=== PATIENT | male | born 1940 | race Caucasian/White ===

== ENCOUNTER → 2018-03-25 | Outpatient (CLI) | payer MEDICARE, OTHER ==
[~2018-03-25] MED LIST: CARVEDILOL12.5 MG PO; CARVEDILOL25 MG PO; CHERATUSSIN AC S5 ML PO; CINNAMON500 MG PO; COQ1050 MG PO; COZAAR 50 MG TA50 M2 PO; COZAAR100 MG PO; CRESTOR10 MG PO; CRESTOR20 MG PO; ENTRESTO 49 MG1 EACH PO; FISH OIL 1,4001 EACH; FISH OIL 1,4001 EACH PO; FISH OIL PO; FUROSEMIDE 20 M20 M1 PO; GLUCOPHAGE1000 MG PO; GLUCOTROL10 MG PO; GLUCOTROL5 MG PO; JANUVIA 50 MG T50 M1 PO; LANOXIN 0.120.125 M1 PO; LASIX 40 MG TAB40 M2 PO; LEVAQUIN 750 M750 MG PO; LEVOTHYROXINE0.05 MG PO; MAGNESIUM OXID400 MG PO; NITROGLYCERIN0.4 MG PO; NOVOLOG100 UNIT/1 SUBQ; PREDNISONE 10 M10 M1 PO; PREDNISONE50 MG PO; PROAIR HFA8.5 GM INH; SPIRONOLACTONE25 M1 PO; SYNTHROID125 MC1 PO; TRICOR145 MG PO; VITAMIN D1000 UNI1 PO; VITAMIN D35000 UNI1 PO; ZPAK PO
[2018-03-25 10:17] LABS: ALBUMIN 3.8 g/dL (3.4-5.0); ALKALINE PHOSPHATASE 26 U/L (46-116); CHOLESTEROL 302 mg/dL (<200); DIRECT BILIRUBIN 0.1 mg/dL (<0.1-0.3); HDL CHOLESTEROL 36 mg/dL (>40); SGOT 40 U/L (15-37); SGPT 44 U/L (30-65); TC:HDL 8.4 Ratio (Not establshd); TOTAL BILIRUBIN 0.4 mg/dL (<0.1-1.0); TOTAL PROTEIN 7.7 g/dL (6.4-8.2); TRIGLYCERIDE 428 mg/dL (<150); VLDL 86 mg/dL (<40)
[2018-03-25 10:33] LABS: LDL CHOLESTEROL ND mg/dL (<100); SERUM ASSESSMENT Clear
== END ==
LOC: M.LAB 09:30
PROVIDERS: Nurse Practitioner Family
DX: E78.2 Mixed hyperlipidemia (principal)

== ENCOUNTER 2018-05-12 13:43 | Emergency (ER) | payer MEDICARE, OTHER ==
[~2018-05-12] VITALS: Ht 177.8 cm; Wt 111.1 kg
[~2018-05-12 13:43] MED LIST changes: -ENTRESTO 49 MG1 EACH PO; -NOVOLOG100 UNIT/1 SUBQ; -PREDNISONE50 MG PO; -SYNTHROID125 MC1 PO
[2018-05-12] MEDS ORDERED: SYNTHROID125 MC1 PO (13:59)
[2018-05-12] MEDS ORDERED: NOVOLOG100 UNIT/1 SUBQ (14:01)
[2018-05-12] MEDS ORDERED: ENTRESTO 49 MG1 EACH PO (14:01)
[2018-05-12 14:16] LABS: ABSOLUTE EOSINOPHILS 0.2 thou/uL (0.0-0.7); ABSOLUTE LYMPHOCYTES 2.2 thou/uL (0.8-5.3); ABSOLUTE MONOCYTES 0.8 thou/uL (0.0-1.2); ABSOLUTE NEUTROPHILS 4.4 thou/uL (1.6-8.1); BASOPHILS 0.6 %; EOSINOPHILS 2.8 %; HEMATOCRIT 36.8 % (42.0-52.0); HEMOGLOBIN 12.3 gm/dL (14.0-18.0); LYMPHOCYTES 28.7 %; MCH 29.8 pg (26.0-34.0); MCHC 33.4 g/dL (28.0-37.0); MCV 89.3 fL (80.0-100.0); MONOCYTES 10.7 %; MPV 8.3 fl. (7.2-11.1); NUCLEATED RBCS 0 /100WBC; PLATELET COUNT* 206 thou/uL (150-400); POLYS 57.2 %; RBC 4.12 mil/uL (4.50-6.00); RDW-CV 13.4 % (10.5-14.5); WBC 7.7 thou/uL (4.0-11.0)
[2018-05-12 14:25] LABS: APTT 24.7 Seconds (25.0-31.3); PROTIME 10.3 Seconds (9.20-11.50)
[2018-05-12 14:26] LABS: ANION GAP 4 mmol/L (7-16); BUN 31 mg/dL (7-18); CALCIUM 9.5 mg/dL (8.5-10.1); CHLORIDE 97 mmol/L (98-107); CO2 34 mmol/L (21-32); CREATININE 1.8 mg/dL (0.6-1.3); GLUCOSE 268 mg/dL (70-99); POTASSIUM 4.5 mmol/L (3.5-5.1); SODIUM 135 mmol/L (136-145)
[2018-05-12 14:36] LABS: ALBUMIN 3.6 g/dL (3.4-5.0); ALKALINE PHOSPHATASE 28 U/L (46-116); LIPASE 171 U/L (73-393); MAGNESIUM 1.7 mg/dL (1.8-2.4); NT-PRO BRAIN NAT PEPTIDE 68 pg/mL (<300); SGOT 40 U/L (15-37); SGPT 48 U/L (30-65); TOTAL BILIRUBIN 0.4 mg/dL (<0.1-1.0); TOTAL PROTEIN 7.8 g/dL (6.4-8.2); TROPONIN-I LEVEL <0.06 ng/mL (<0.06)
[2018-05-12] MEDS ORDERED: ZPAK PO (16:15)
[2018-05-12] MEDS ORDERED: PREDNISONE50 MG PO (16:15)
[2018-05-12 16:45] VITALS: BP 108/46
--- NOTE | 2018-05-13 14:09 | EKG ---
[place] [address] ELECTROCARDIOGRAM REPORT Name: ADY CHOE Room: [facility]#: [id number] Admission: 05/12/18 Attend Phys: Discharge: 05/12/18 Date of : 40 Report #: [id number] THIS REPORT FOR: //name// 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 05/13/18 1409 1410 09 Charlie England MD, [facility] /EPI
--- NOTE | 2018-05-13 14:14 | EKG ---
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 PERALES : 1940 Requested By: Levar Napoles Order Number: [id number] MD: Charlie England Measurements Intervals [place] Rate: 75 P: 54 RI: 145 QRS: 136 QRSD: 167 T: 61 QT: 439 QTc: 491 Interpretive Statements Atrial-sensed ventricular-paced rhythm No further analysis attempted due to paced rhythm Baseline wander in lead(s) V5 Electronically Signed On 05-13-2018 14:14:02 CDT by Charlie England [email or web address] <ELECTRONICALLY SIGNED> By: Charlie England MD, [facility] 05/13/18 1414 D: 09/1622 22 Charlie England MD, FACC /EPI
== END 2018-05-12 16:46 | disposition home or self-care (01) ==
LOC: M.ERS 13:43
PROVIDERS: Emergency Medicine Emergency Medical Services
DX: J44.1 Chronic obstructive pulmonary disease with (acute) exacerbation (principal); E78.5 Hyperlipidemia, unspecified; I11.0 Hypertensive heart disease with heart failure; I50.9 Heart failure, unspecified; E11.9 Type 2 diabetes mellitus without complications; Z87.891 Personal history of nicotine dependence; Z88.8 Allergy status to other drugs, medicaments and biological substances; Z90.49 Acquired absence of other specified parts of digestive tract

== ENCOUNTER → 2018-07-23 | Outpatient (CLI) | payer MEDICARE, OTHER ==
[~2018-07-23] MED LIST changes: +ENTRESTO 49 MG1 EACH PO; +NOVOLOG100 UNIT/1 SUBQ; +PREDNISONE50 MG PO; +SYNTHROID125 MC1 PO
[2018-07-23 10:26] LABS: URINE BILIRUBIN NEGATIVE (Negative); URINE BLOOD NEGATIVE (Negative); URINE CLARITY CLEAR; URINE COLOR YELLOW; URINE GLUCOSE-RANDOM 1+ (Negative); URINE KETONES NEGATIVE (Negative); URINE LEUKOCYTES NEGATIVE (Negative); URINE NITRITE NEGATIVE (Negative); URINE PROTEIN TRACE (Negative); URINE SPECIFIC GRAVITY 1.025 (1.005-1.030); URINE UROBILINOGEN 0.2 E.U./dl (0.2-1.0)
[2018-07-23 10:26] LABS: ABSOLUTE EOSINOPHILS 0.3 thou/uL (0.0-0.7); ABSOLUTE LYMPHOCYTES 1.8 thou/uL (0.8-5.3); ABSOLUTE MONOCYTES 0.5 thou/uL (0.0-1.2); ABSOLUTE NEUTROPHILS 3.3 thou/uL (1.6-8.1); BASOPHILS 0.8 %; EOSINOPHILS 4.8 %; HEMOGLOBIN 12.7 gm/dL (14.0-18.0); LYMPHOCYTES 30.3 %; MCH 30.5 pg (26.0-34.0); MCHC 33.5 g/dL (28.0-37.0); MCV 91.2 fL (80.0-100.0); MONOCYTES 7.9 %; MPV 8.5 fl. (7.2-11.1); NUCLEATED RBCS 0 /100WBC; PLATELET COUNT* 204 thou/uL (150-400); POLYS 56.2 %; RBC 4.17 mil/uL (4.50-6.00); RDW-CV 14.4 % (10.5-14.5); WBC 5.8 thou/uL (4.0-11.0)
[2018-07-23 10:39] LABS: ALBUMIN 3.6 g/dL (3.4-5.0); ALKALINE PHOSPHATASE 27 U/L (46-116); ANION GAP 3 mmol/L (7-16); BUN 26 mg/dL (7-18); CALCIUM 9.8 mg/dL (8.5-10.1); CHLORIDE 100 mmol/L (98-107); CHOLESTEROL 280 mg/dL (<200); CO2 34 mmol/L (21-32); CREATININE 1.6 mg/dL (0.6-1.3); GLUCOSE 259 mg/dL (70-99); HDL CHOLESTEROL 36 mg/dL (>40); POTASSIUM 4.3 mmol/L (3.5-5.1); SGOT 34 U/L (15-37); SGPT 50 U/L (30-65); SODIUM 137 mmol/L (136-145); TC:HDL 7.8 Ratio (Not establshd); TOTAL BILIRUBIN 0.4 mg/dL (<0.1-1.0); TOTAL PROTEIN 7.4 g/dL (6.4-8.2); TRIGLYCERIDE 422 mg/dL (<150); VLDL 84 mg/dL (<40)
[2018-07-23 10:42] LABS: LDL CHOLESTEROL ND mg/dL (<100)
[2018-07-23 10:44] LABS: SERUM ASSESSMENT Clear
[2018-07-23 19:07] LABS: GLYCOHEMOGLOBIN (HGB A1C) 10.4 % (4.8-5.6)
== END ==
LOC: M.LAB 10:02
PROVIDERS: Family Medicine
DX: E11.9 Type 2 diabetes mellitus without complications (principal); E03.9 Hypothyroidism, unspecified; I11.0 Hypertensive heart disease with heart failure; I50.9 Heart failure, unspecified; E78.5 Hyperlipidemia, unspecified; Z87.891 Personal history of nicotine dependence; Z79.4 Long term (current) use of insulin

== ENCOUNTER → 2018-12-17 | Outpatient (CLI) | payer MEDICARE, OTHER ==
[2018-12-17 09:41] LABS: ALBUMIN 3.7 g/dL (3.4-5.0); ALKALINE PHOSPHATASE 27 U/L (46-116); CHOLESTEROL 277 mg/dL (<200); DIRECT BILIRUBIN 0.1 mg/dL (<0.1-0.3); HDL CHOLESTEROL 36 mg/dL (>40); LDL CHOLESTEROL 164 mg/dL (<100); SGOT 33 U/L (15-37); SGPT 40 U/L (30-65); TC:HDL 7.7 Ratio (Not establshd); TOTAL BILIRUBIN 0.3 mg/dL (<0.1-1.0); TOTAL PROTEIN 7.3 g/dL (6.4-8.2); TRIGLYCERIDE 389 mg/dL (<150); VLDL 78 mg/dL (<40)
[2018-12-17 09:42] LABS: SERUM ASSESSMENT Clear
== END ==
LOC: M.LAB 08:48
PROVIDERS: Nurse Practitioner
DX: E78.2 Mixed hyperlipidemia (principal)

== ENCOUNTER → 2019-04-01 | Outpatient (CLI) | payer MEDICARE, OTHER ==
[2019-04-01 09:49] LABS: ABSOLUTE EOSINOPHILS 0.2 thou/uL (0.0-0.7); ABSOLUTE LYMPHOCYTES 2.6 thou/uL (0.8-5.3); ABSOLUTE MONOCYTES 0.7 thou/uL (0.0-1.2); ABSOLUTE NEUTROPHILS 6.2 thou/uL (1.6-8.1); BASOPHILS 0.3 %; EOSINOPHILS 1.7 %; HEMATOCRIT 38.3 % (42.0-52.0); HEMOGLOBIN 12.6 gm/dL (14.0-18.0); MCH 29.8 pg (26.0-34.0); MCV 90.3 fL (80.0-100.0); MPV 8.1 fl. (7.2-11.1); NUCLEATED RBCS 0 /100WBC; PLATELET COUNT* 202 thou/uL (150-400); RBC 4.24 mil/uL (4.50-6.00); RDW-CV 13.5 % (10.5-14.5); WBC 9.7 thou/uL (4.0-11.0)
[2019-04-01 09:57] LABS: ALBUMIN 3.6 g/dL (3.4-5.0); ALKALINE PHOSPHATASE 22 U/L (46-116); ANION GAP 3 mmol/L (7-16); BUN 51 mg/dL (7-18); CHLORIDE 100 mmol/L (98-107); CHOLESTEROL 229 mg/dL (<200); CO2 39 mmol/L (21-32); CREATININE 1.6 mg/dL (0.6-1.3); HDL CHOLESTEROL 56 mg/dL (>40); LDL CHOLESTEROL 143 mg/dL (<100); POTASSIUM 4.4 mmol/L (3.5-5.1); SGOT 26 U/L (15-37); SGPT 41 U/L (30-65); SODIUM 142 mmol/L (136-145); TC:HDL 4.1 Ratio (Not establshd); TOTAL BILIRUBIN 0.5 mg/dL (<0.1-1.0); TOTAL PROTEIN 7.1 g/dL (6.4-8.2); TRIGLYCERIDE 150 mg/dL (<150); VLDL 30 mg/dL (<40)
[2019-04-01 10:08] LABS: GLUCOSE 36 mg/dL (70-99)
[2019-04-01 11:49] LABS: SERUM ASSESSMENT Clear
[2019-04-02 02:10] LABS: GLYCOHEMOGLOBIN (HGB A1C) 7.7 % (4.8-5.6)
== END ==
LOC: M.LAB 09:28
PROVIDERS: Nurse Practitioner
DX: I25.10 Atherosclerotic heart disease of native coronary artery without angina pectoris (principal); I11.0 Hypertensive heart disease with heart failure; I50.22 Chronic systolic (congestive) heart failure; J43.1 Panlobular emphysema; E78.2 Mixed hyperlipidemia; E03.9 Hypothyroidism, unspecified; J44.9 Chronic obstructive pulmonary disease, unspecified; E11.9 Type 2 diabetes mellitus without complications

== ENCOUNTER 2019-06-02 17:45 | Inpatient (IN) | payer MEDICARE, OTHER ==
[~2019-06-02] VITALS: Ht 177.8 cm; Wt 113.0 kg
[~2019-06-02 17:45] MED LIST changes: -MAGNESIUM OXID400 MG PO; +MAGOX 400400 MG PO; -TRICOR145 MG PO; +TRIGLIDE160 MG PO
[2019-06-02 17:57] VITALS: BP 151/63
[2019-06-02] MEDS ORDERED: TRESIBA FL100 UNIT/1 SUBQ (18:15)
[2019-06-02] MEDS ORDERED: ANORO ELLIPTA1 EACH INH (18:16)
[2019-06-02] MEDS ORDERED: IPRAT-ALBUT 0.5-3 ML INH (18:16)
[2019-06-02] MEDS ORDERED: NITROSTAT0.4 M1 SUBLING (18:16)
[2019-06-02] MEDS ORDERED: VENTOLIN HFA 1818 GM INH (18:17)
[2019-06-02 18:40] LABS: ABSOLUTE BASOPHILS 0.1 thou/uL (0.0-0.2); ABSOLUTE EOSINOPHILS 0.5 thou/uL (0.0-0.7); ABSOLUTE LYMPHOCYTES 2.3 thou/uL (0.8-5.3); ABSOLUTE MONOCYTES 0.8 thou/uL (0.0-1.2); ABSOLUTE NEUTROPHILS 4.3 thou/uL (1.6-8.1); BASOPHILS 0.9 %; HEMATOCRIT 34.7 % (42.0-52.0); LYMPHOCYTES 29.1 %; MCH 30.8 pg (26.0-34.0); MCHC 34.4 g/dL (28.0-37.0); MCV 89.4 fL (80.0-100.0); MONOCYTES 9.9 %; MPV 8.4 fl. (7.2-11.1); NUCLEATED RBCS 0 /100WBC; PLATELET COUNT* 182 thou/uL (150-400); POLYS 54.1 %; RBC 3.88 mil/uL (4.50-6.00); RDW-CV 13.3 % (10.5-14.5)
[2019-06-02 18:42] LABS: BE 4.4 mmol/L (-2 to +3); PO2 82.2 mmHg (75.0-100.0); pH 7.394 (7.340-7.450)
[2019-06-02 18:47] LABS: PCO2 50.8 mmHg (35.0-45.0)
[2019-06-02 18:52] LABS: CALCIUM 10.4 mg/dL (8.5-10.1); CREATININE 1.7 mg/dL (0.6-1.3); POTASSIUM 4.8 mmol/L (3.5-5.1)
[2019-06-02 18:53] LABS: APTT 23.9 Seconds (25.0-31.3); PROTIME 10.4 Seconds (9.20-11.50)
[2019-06-02 18:56] LABS: ALBUMIN 3.5 g/dL (3.4-5.0); TOTAL BILIRUBIN 0.3 mg/dL (<0.1-1.0); TOTAL PROTEIN 7.3 g/dL (6.4-8.2)
[2019-06-02 22:22] VITALS: BP 139/66
[2019-06-02 22:42] VITALS: BP 134/68
[2019-06-03 04:00] VITALS: BP 104/52
[2019-06-03 08:00] VITALS: BP 127/70
--- NOTE | 2019-06-03 11:25 | EKG ---
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: : 1940 Requested By: Henry Shea Order Number: [id number] MD: Charlie England Measurements Intervals [place] Rate: 76 P: 164 MA: 33 QRS: 131 QRSD: 172 T: 67 QT: 434 QTc: 489 Interpretive Statements Atrial-sensed ventricular-paced rhythm No further analysis attempted due to paced rhythm Baseline wander in lead(s) V4 Compared to ECG 05/12/2018 16:23:26 No significant changes Electronically Signed On 06-03-2019 11:25:13 CDT by Charlie England [email or web address] <ELECTRONICALLY SIGNED> By: Charlie England MD, FACC 06/03/19 1125 180 180 Charlie England MD, [facility] /EPI
[2019-06-03 11:55] VITALS: BP 138/67
[2019-06-03 17:05] VITALS: BP 117/48
[2019-06-03 20:00] VITALS: BP 128/59
[2019-06-04] VITALS: BP 123/50
[2019-06-04 03:45] VITALS: BP 104/48
[2019-06-04 08:00] VITALS: BP 132/63
--- NOTE | 2019-06-04 08:22 | CON ---
[address] [address] CONSULTATION Name: ADY CHOE Room: [address] IN M.R.#: [id number] Admission: 06/02/19 Attend Phys: Mahendra Gomez MD Discharge: Date of : 40 Report #: [id number] THIS REPORT FOR: //name// CC: Mahendra Mccartney MD [facility] DARLENE Coreas DATE OF SERVICE: 06/03/2019 REQUESTING PHYSICIAN: Dr. White. REASON FOR CONSULTATION: Shortness of breath, COPD exacerbation. DISCUSSION: The patient is a 79-year-old man who is a remote smoker. He has a history of underlying COPD. He is on O2, though has not been steroid dependent. He does follow with Dr. Lyon through the [facility]. He notes he went out to [place] around Labor Day weekend. He had a lot of trouble while he was out there. He did not tolerate the altitude well at all. When he returned, he did not go back to his prior baseline. He continued to struggle. It has been getting worse. He was given a round of prednisone. He is having a lot of upper airway congestion. He was able to walk only short distances. He was [facility] at Dr. Ratliff's office late yesterday afternoon. His O2 saturations were low while on oxygen. He was referred to the ED here at [place]. He was evaluated there. He was noted to be bronchospastic on exam. X-rays were clear for any acute infiltrates. Blood gases did reveal some mild hypercapnia. He was started on IV steroids, bronchodilator therapy. This morning, he is feeling a little better. He has done fair amount of cough. His secretions are fairly thick, but they are white. He is a remote smoker, quitting greater than 10 years ago. He has had full pulmonary function studies done based on his description while in Dr. Lyon's office. He cannot tell me what those show. He has not been through pulmonary rehabilitation. At home, he is on the O2 continuously, which he has been on for the last 4-5 years. He uses Anoro daily. He has access to nebulizers. It is not clear if it is DuoNeb or straight albuterol that he has at home as it is listed in both places on his outside paperwork. He typically does neb treatment; however, only once a day that is right before he goes to bed at night. He has a Ventolin inhaler, but again, he has not been using that much. When queried as to why he was not using either the Ventolin or the nebulizer treatments more frequently here recently if he was having more trouble, he noted that in the past, they really have not been beneficial and once he slowly got on the Anoro, he had better control of his COPD. He does do some guaifenesin at home as well to try to help with the thick secretions. Denies any hemoptysis. He is not aware of any fevers at home. [address] [address] CONSULTATION Name: ДМИТРИЙADY Prado Room: [address] IN [facility]#: [id number] Admission: 06/02/19 Attend Phys: Mahendra Gomez MD Discharge: Date of : 40 Report #: [id number] Denied any GI symptoms associated with this. Also, he has a history of a cardiomyopathy. I believe it is nonischemic. He does have a defibrillator in place. He sees Dr. Mccartney. He notes that at one point, his EF was quite low down to 15%. He notes earlier this year, he had an echocardiogram done in the office and was told it was up to 40-45%. We currently do not have any of those records. He has had the Pneumovax in the past. He does not smoke as noted. He has no prior history of thromboembolic disease. PAST MEDICAL HISTORY: Remarkable for cardiomyopathy as noted, chronic obstructive pulmonary disease, diabetes mellitus, chronic kidney disease, dyslipidemia, hypertension. He did require the defibrillator in the past. Cardiac catheterization about 5 years ago. HOME MEDICATIONS: His home medications have been the Anoro daily as noted, p.r.n. albuterol both in inhalers as well as in the nebulizer, recent prednisone taper which he was still on, fenofibrate, Crestor, fish oil, p.r.n. nitroglycerin, Coreg, Entresto, spironolactone, Lasix, magnesium oxide, insulin, glipizide, levothyroxine, cholecalciferol and Aldactone. SOCIAL HISTORY: He is . 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 FAMILY HISTORY: He notes a daughter of "blood clot." Apparently, this has followed some type of injury to her leg. REVIEW OF SYSTEMS: ROS was done. Note positives as above. Denies any syncopal episodes. He has been quite weak; however, no falls. He does weigh himself daily. Does tend to retain little bit of fluid in his legs. He typically does sleep with a wedge. He has done so for a long time. At times, he does have some restless sleep. No morning headaches. He does not always feel rested in the morning when he gets up. Unknown about snoring and witnessed apneic episodes as his does not sleep in the same room with him. Occasionally, he does get choked up with p.o. intake. Denies any indigestion or heartburn. He has not had any hemoptysis. Denies any hematemesis or blood in his stools. PHYSICAL EXAMINATION: GENERAL APPEARANCE: Appearance of a large man. Alert, cooperative. He does get dyspneic with minimal activity. He is able to speak in full sentences as long as he is sitting upright. HEENT: Head is normocephalic. Sclerae nonicteric. Mucous membranes are a little dry. NECK: Full. [place] [address] CONSULTATION Name: ДМИТРИЙADY Prado Room: [address]#: [id number] Admission: 06/02/19 Attend Phys: Mahendra Gomez MD Discharge: Date of : 40 Report #: [id number] HEART: Tones are distant, but appear regular. No S3 is heard. He has a palpable pacemaker/defibrillator in left anterior chest wall. LUNGS: Sounds are diminished. He has a prolonged expiratory phase. A few late expiratory wheezes heard. Excursion is equal. No subcutaneous emphysema. No CVA tenderness. ABDOMEN: Obese, but soft. No definite hepatosplenomegaly is appreciated. EXTREMITIES: He has no clubbing. Radial pulses are present. Lower extremities, he has trace pretibial edema. There is no calf tenderness. SKIN: Warm and dry. NEUROLOGIC: He is alert and oriented x 3. LABORATORY AND X-RAY FINDINGS: Chest x-ray suggests some hyperinflation. No definite infiltrates are seen when compared to prior studies. BUN of 36, creatinine of 1.7, potassium is 4.8. Magnesium 1.7. Calcium is 10.4 with a total protein of 7.3, albumin 3.5. Troponins were unremarkable. White blood cell count 8000, hemoglobin 12.0, hematocrit 34.7, platelets 182,000. Arterial blood gases done yesterday evening on 3 liters, he had a pH 7.394, pCO2 of 51, pO2 of 82, bicarbonate of 30 with a saturation of 95%. These are comparable to arterial blood gases done 5 years ago. He did have hypercapnia noted at that time as well. We have no recent echocardiograms. Those apparently were done in Dr. Mccartney' office. IMPRESSION: 1. Complaints of increasing dyspnea. May very well be related to his underlying chronic obstructive pulmonary disease. He was bronchospastic when evaluated in the Emergency Department. Baseline I presume he probably has severe disease. He has been O2 dependent for at least the last 4-5 years. If he truly has had improvement in his left ventricular function, that would less likely be the culprit for some of his dyspnea. Since he did have a long trip out to [place], possibility of thromboembolic disease needs to be considered. Though he notes he was stopping every hour on the trip to and from, given his history of heart failure and chronic obstructive pulmonary disease and obesity, that is a potential risk factor. 2. Chronic kidney disease. 3. Diabetes mellitus type 2. 4. History of nonischemic cardiomyopathy. Defibrillator in place. RECOMMENDATIONS: 1. Agree with steroids, but we will start to decrease the dose. 2. Add Brovana since we do not carry Anoro. He can return to Anoro and p.r.n. albuterol on discharge. 3. I will check venous Dopplers. 4. Ventilation perfusion lung scan. Unable to do CT angiogram of his chest due to his renal insufficiency. 5. We will also add Mucinex. 6. Agree with , which has already been provided to the patient. [address] [address] CONSULTATION Name: ADY CHOE Room: [address] IN M.R.#: [id number] Admission: 06/02/19 Attend Phys: Mahendra Gomez MD Discharge: Date of : 40 Report #: [id number] 7. Activity as tolerated. 8. May also be a candidate for pulmonary rehabilitation once discharged. <ELECTRONICALLY SIGNED> By: Claudia Lobato MD 06/04/19 0822 1117 [id number] Lobato MD /nt
[2019-06-04 09:33] LABS: CALCIUM 10.1 mg/dL (8.5-10.1); CREATININE 2.1 mg/dL (0.6-1.3); POTASSIUM 4.5 mmol/L (3.5-5.1)
[2019-06-04 11:37] VITALS: BP 128/62
[2019-06-04 16:00] VITALS: BP 116/48
[2019-06-04 19:36] LABS: URINE BILIRUBIN NEGATIVE (Negative); URINE BLOOD NEGATIVE (Negative); URINE CLARITY CLEAR; URINE COLOR YELLOW; URINE GLUCOSE-RANDOM TRACE (Negative); URINE KETONES NEGATIVE (Negative); URINE LEUKOCYTES NEGATIVE (Negative); URINE NITRITE NEGATIVE (Negative); URINE PROTEIN NEGATIVE (Negative); URINE SPECIFIC GRAVITY 1.025 (1.005-1.030); URINE UROBILINOGEN 0.2 E.U./dl (0.2-1.0)
[2019-06-04 20:00] VITALS: BP 117/60
[2019-06-05] VITALS: BP 100/58
[2019-06-05 04:00] VITALS: BP 100/40
[2019-06-05 05:09] LABS: CALCIUM 9.8 mg/dL (8.5-10.1); CREATININE 2.2 mg/dL (0.6-1.3); MAGNESIUM 1.9 mg/dL (1.8-2.4); POTASSIUM 4.4 mmol/L (3.5-5.1); TOTAL BILIRUBIN 0.3 mg/dL (<0.1-1.0); TOTAL PROTEIN 6.3 g/dL (6.4-8.2)
[2019-06-05 08:00] VITALS: BP 92/49
[2019-06-05 12:08] VITALS: BP 142/60
[2019-06-05 16:16] VITALS: BP 151/67
[2019-06-05 20:00] VITALS: BP 134/68
[2019-06-06] VITALS: BP 116/60
[2019-06-06 04:00] VITALS: BP 121/63
[2019-06-06 05:01] LABS: HEMATOCRIT 32.9 % (42.0-52.0); HEMOGLOBIN 11.3 gm/dL (14.0-18.0); MCH 30.3 pg (26.0-34.0); MCHC 34.3 g/dL (28.0-37.0); MCV 88.3 fL (80.0-100.0); MPV 9.3 fl. (7.2-11.1); RBC 3.72 mil/uL (4.50-6.00); RDW-CV 13.3 % (10.5-14.5)
[2019-06-06 05:14] LABS: ALBUMIN 2.9 g/dL (3.4-5.0); CALCIUM 9.8 mg/dL (8.5-10.1); CREATININE 1.8 mg/dL (0.6-1.3); MAGNESIUM 2.1 mg/dL (1.8-2.4); POTASSIUM 4.1 mmol/L (3.5-5.1); TOTAL BILIRUBIN 0.3 mg/dL (<0.1-1.0); TOTAL PROTEIN 6.2 g/dL (6.4-8.2)
[2019-06-06 09:43] VITALS: BP 105/65
--- NOTE | 2019-06-06 11:18 | CON ---
[facility] [address] [place] [address] CONSULTATION Name: ДМИТРИЙADY Prado Room: [address] IN .R.#: [id number] Admission: 06/02/19 Attend Phys: Mahendra Gomez MD Discharge: Date of : 40 Report #: [id number] THIS REPORT FOR: //name// CC: Mahendra Ratliff DATE OF SERVICE: 06/06/2019 UROLOGY CONSULTATION REFERRING PHYSICIAN: Mahendra Gomez M.D. REASON FOR CONSULTATION: Urinary retention. HISTORY OF PRESENT ILLNESS: This is a 79-year-old male admitted with multiple medical problems. Urology is consulted regarding urinary retention. The patient denies prior difficulty voiding, but states that since being started on diuretics for fluid retention, he developed worsening slow stream, frequency, urgency, hesitancy, sensation of incomplete emptying and straining to void. He was noted to be in urinary retention and a Dickerson catheter was placed. He has been started on Flomax. Denies prior prostate or urinary tract problems. Denies urinary tract surgery or instrumentation. Denies personal or family history of prostate cancer. Denies dysuria, hematuria, flank pain or fever. PAST MEDICAL HISTORY: As above. Also has a history of COPD, hypothyroidism, hypertension, diabetes, coronary artery disease, CHF, hyperlipidemia. FAMILY HISTORY: As above. He does not know of any family history of renal disease. SOCIAL HISTORY: Quit tobacco after a decade's long history of smoking. Denies use of alcohol. REVIEW OF SYSTEMS: As per the history of present illness. No fever or chills. No chest pain, palpitations or shortness of breath. Nonproductive cough. No nausea or vomiting. No easy bruising or bleeding. Reports lower extremity swelling, which has improved since admission. PHYSICAL EXAMINATION: VITAL SIGNS: Temperature 36.8, pulse 80, respirations 20, blood pressure 105/65. GENERAL: This is a 79-year-old male, in no acute distress. He is on supplemental oxygen. He is awake, alert and oriented x 3. HEENT: Normocephalic, atraumatic. NECK: Supple. Range of motion is within normal limits. Extraocular movements are intact. [place]roph[place] [address] CONSULTATION Name: ADY CHOE Room: [address] IN [facility].#: [id number] Admission: 06/02/19 Attend Phys: Mahendra Gomez MD Discharge: Date of : 40 Report #: [id number] RESPIRATORY: Respiratory effort and excursion are normal. CHEST: Chest wall is nontender. He is being followed by Pulmonology. CARDIAC: Rhythm is regular. Radial pulses are palpable. ABDOMEN: Soft, nontender and nondistended. Bladder is nonpalpable. BACK: Spine and costovertebral angles are nontender. EXTREMITIES: Warm. Moves all extremities well. Mild bilateral lower extremity edema. GENITOURINARY: Reveals normal penile and scrotal skin. Testes are nontender with no palpable masses. Urethral meatus is orthotopic. There is a Dickerson catheter in place draining grossly clear urine. Digital rectal exam reveals normal anus and sphincter tone. Prostate is moderately enlarged with no tenderness or nodularity. LABORATORY DATA: Laboratory studies include hemoglobin of 11.3, white count 12.0, platelet count 187,000. Sodium 138, potassium 4.1, chloride 98, CO2 of 33, BUN 62, creatinine 1.8, glucose 69. Urinalysis is negative. Renal ultrasound reveals bilateral renal cysts and a Dickerson catheter in place. No hydronephrosis. IMPRESSION AND RECOMMENDATIONS: Prostate enlargement with urinary retention, likely multifactorial given his acute illness and other comorbidities. Recommend leaving Dickerson catheter in place and continuing Flomax. The patient reports he is being discharged today. I recommended that he call the office next week to set up a followup in approximately 1-2 weeks for further management of his Dickerson and prostate disease. We will defer management of his renal insufficiency to the primary service as there is no evidence of hydronephrosis. He reports mild chronic renal insufficiency and states this is being followed by his primary care physician. Bilateral renal cysts were noted on sono. Patient advised. Urology will sign off. Call with concerns. <ELECTRONICALLY SIGNED> By: Ady Mensah MD 06/06/19 1118 0939 [id number] Mensah MD /nt
[2019-06-06 11:24] VITALS: BP 105/65
[2019-06-06 12:00] VITALS: BP 136/58
[2019-06-06 12:21] VITALS: BP 105/65
[2019-06-06] MEDS ORDERED: FLOMAX0.4 MG PO (13:15)
[2019-06-06] MEDS ORDERED: RAYOS5 MG PO (13:20)
[2019-06-06] MEDS ORDERED: CEFDINIR300 MG PO (13:21)
--- NOTE | 2019-06-09 18:26 | CON ---
[address] [address] CONSULTATION Name: ADY CHOE Room: [address] IN ..#: [id number] Admission: 06/02/19 Attend Phys: Mahendra Gomez MD Discharge: 06/06/19 Date of : 40 Report #: [id number] THIS REPORT FOR: //name// CC: Mahendra Ratliff DO DATE OF SERVICE: 06/03/2019 CARDIOLOGY CONSULTATION HISTORY OF PRESENT ILLNESS: The patient is a 79-year-old white male who I was asked to see in the hospital today after he complained of shortness of breath. The patient has an extensive past medical history. He has a history of a nonischemic cardiomyopathy. Previous heart catheterization apparently showed no significant coronary artery disease. He recently had an ejection fraction less than 25%. He underwent implantation of an ICD in [address] Longoria for primary prevention of sudden and ventricular arrhythmias. Apparently, his ICD has never shocked his heart. Recently, he has been cared for by my partner, Dr. Mccartney. He states he last saw Dr. Mccartney in December when he had an echocardiogram that showed his ejection fraction was up to 45%. He denied recent chest pain, palpitations, or syncope. He states he actually went to [place] about a month ago. When he came back, he was more short of breath. He saw his primary care physician and was given a round of steroids and antibiotics. However, shortness of breath persisted. Last few days, he has had increasing shortness of breath. He noted some runny nose. He could not lie flat at night. He does have oxygen at home if he needs it. His granddaughter brought him to the hospital yesterday. He was admitted for further evaluation and treatment. He denied any leg pain or significant swelling. PAST MEDICAL HISTORY: Significant for appendectomy, hypertension, diabetes, and hyperlipidemia. MEDICATIONS: Include Synthroid, rosuvastatin, Entresto, spironolactone, Lasix, carvedilol, fenofibrate, glipizide, NovoLog, Anoro inhaler, and Ventolin. ALLERGIES: HE HAS INTOLERANCE TO NIASPAN. FAMILY HISTORY: His sister had heart disease. SOCIAL HISTORY: He is retired from [employer]. He lives in [place]. He quit smoking years ago. He used to smoke half pack of cigarettes a day for 50 years, quit in 2002. REVIEW OF SYSTEMS: He has had no history of stroke, peptic ulcer disease, or liver disease. He has had a kidney stone. No cancer. [place] [address] CONSULTATION Name: ADY CHOE Room: [address]#: [id number] Admission: 06/02/19 Attend Phys: Mahendra Gomez MD Discharge: 06/06/19 Date of : 40 Report #: [id number] psychiatric illness. PHYSICAL EXAMINATION: GENERAL: Revealed a large, elderly male, appeared in mild respiratory distress. VITAL SIGNS: Blood pressure 130/60 and pulse 80. He is afebrile. HEENT: He was anicteric. Conjunctivae pink. Mucous membranes moist. NECK: Neck veins do not appear distended. No carotid bruits. Neck was supple. CHEST: Decreased breath sounds in the bases. CARDIOVASCULAR: Regular rate and rhythm. No murmur. ABDOMEN: Soft. EXTREMITIES: No pitting edema. Dorsalis pedis pulse 2+ bilaterally. SKIN: Cool and dry. NEUROLOGIC: Nonfocal. LYMPH: No adenopathy. MUSCULOSKELETAL: No joint effusion. LABORATORY DATA: His ECG on admission showed what appeared to be a ventricular paced rhythm with an underlying rhythm of atrial fibrillation. His workup yesterday in the Emergency Room, he had a portable chest x-ray yesterday that showed normal heart size and hyperinflated lung mancera. There seemed to be no significant pleural effusion and no pulmonary edema. He had a venous duplex scan of his legs today that showed no DVT. His nuclear stress test done a year ago here at [facility] showed an ejection fraction of 30%. Anteroapical defect that was partially reversible suggesting previous infarction with some zoila-infarct ischemia. A cardiac catheterization done here at [facility] [address] Leong. At that time, his ejection fraction was 25-30% by echo. It was performed from the radial artery. The LAD had only 20% stenosis. Circumflex had no significant stenosis. The right coronary had a 30% stenosis. No ventriculogram was performed at that time. IMPRESSION AND RECOMMENDATIONS: 1. Chronic obstructive pulmonary disease. 2. Previous tobacco abuse. 3. Obesity. 4. History of cardiomyopathy. The patient has been on Entresto, Aldactone, Lasix, and beta slick. 5. Previous implantation of defibrillator. No recent discharges. 6. Diabetes. 7. Hyperlipidemia. The patient is on a statin drug. 8. History of kidney stone. 9. Chronic kidney disease. In 2013, the patient actually had a creatinine of 2.3. <ELECTRONICALLY SIGNED> By: Charlie England MD, [facility] 06/09/19 1826 1406 [id number] Clare England MD, FACC /nt
== END 2019-06-06 14:25 | disposition home health service (06) | DRG 291 ==
LOC: M.ERS 17:45 → M.2W 18:59 → M.TBA-ER 18:59 → M.2W 22:19
PROVIDERS: Emergency Medicine; Internal Medicine; Internal Medicine Cardiovascular Disease; ADMIT Internal Medicine
DX: I13.0 Hypertensive heart and chronic kidney disease with heart failure and stage 1 through stage 4 chronic kidney disease, or unspecified chronic kidney disease (principal); J96.21 Acute and chronic respiratory failure with hypoxia; I50.23 Acute on chronic systolic (congestive) heart failure; J96.22 Acute and chronic respiratory failure with hypercapnia; N17.9 Acute kidney failure, unspecified; J44.1 Chronic obstructive pulmonary disease with (acute) exacerbation; I42.9 Cardiomyopathy, unspecified; E66.9 Obesity, unspecified; N18.9 Chronic kidney disease, unspecified; I25.10 Atherosclerotic heart disease of native coronary artery without angina pectoris; E03.9 Hypothyroidism, unspecified; N40.1 Benign prostatic hyperplasia with lower urinary tract symptoms; R33.8 Other retention of urine; E10.22 Type 1 diabetes mellitus with diabetic chronic kidney disease; N28.1 Cyst of kidney, acquired; E78.5 Hyperlipidemia, unspecified; Z53.29 Procedure and treatment not carried out because of patient's decision for other reasons; Z90.49 Acquired absence of other specified parts of digestive tract; Z79.899 Other long term (current) drug therapy; Z79.84 Long term (current) use of oral hypoglycemic drugs; Z79.4 Long term (current) use of insulin; Z79.51 Long term (current) use of inhaled steroids; Z88.8 Allergy status to other drugs, medicaments and biological substances; Z87.891 Personal history of nicotine dependence; Z82.49 Family history of ischemic heart disease and other diseases of the circulatory system; Z68.35 Body mass index [BMI] 35.0-35.9, adult; Z95.810 Presence of automatic (implantable) cardiac defibrillator; Z87.442 Personal history of urinary calculi; Z99.81 Dependence on supplemental oxygen; Z95.2 Presence of prosthetic heart valve

== ENCOUNTER 2019-06-09 14:20 | Inpatient (IN) | payer MEDICARE, OTHER ==
[~2019-06-09] VITALS: Ht 177.8 cm; Wt 115.2 kg
[2019-06-09] VITALS (16 sets, daily range): BP systolic 54–128; BP diastolic 34–82
[~2019-06-09 14:20] MED LIST changes: +ANORO ELLIPTA1 EACH INH; +CEFDINIR300 MG PO; +FLOMAX0.4 MG PO; +IPRAT-ALBUT 0.5-3 ML INH; +NITROSTAT0.4 M1 SUBLING; +RAYOS5 MG PO; +TRESIBA FL100 UNIT/1 SUBQ; +VENTOLIN HFA 1818 GM INH
--- NOTE | 2019-06-09 14:47 | NUR ---
DR. SHAVER NOTIFIED OF LOW B/P.
[2019-06-09 14:55] LABS: ABSOLUTE LYMPHOCYTES 1.3 thou/uL (0.8-5.3); ABSOLUTE MONOCYTES 0.7 thou/uL (0.0-1.2); ABSOLUTE NEUTROPHILS 8.5 thou/uL (1.6-8.1); BASOPHILS 0.1 %; EOSINOPHILS 0.4 %; HEMATOCRIT 34.6 % (42.0-52.0); LYMPHOCYTES 12.2 %; MCH 30.5 pg (26.0-34.0); MCHC 34.6 g/dL (28.0-37.0); MCV 88.3 fL (80.0-100.0); MONOCYTES 6.6 %; MPV 9.2 fl. (7.2-11.1); NUCLEATED RBCS 0 /100WBC; PLATELET COUNT* 198 thou/uL (150-400); POLYS 80.7 %; RBC 3.92 mil/uL (4.50-6.00); RDW-CV 13.5 % (10.5-14.5); WBC 10.5 thou/uL (4.0-11.0)
[2019-06-09 15:05] LABS: APTT 22.4 Seconds (25.0-31.3); CALCIUM 9.7 mg/dL (8.5-10.1); CREATININE 3.2 mg/dL (0.6-1.3); POTASSIUM 4.5 mmol/L (3.5-5.1); PROTIME 10.6 Seconds (9.20-11.50)
[2019-06-09 15:15] LABS: ALBUMIN 2.9 g/dL (3.4-5.0); TOTAL BILIRUBIN 0.4 mg/dL (<0.1-1.0); TOTAL PROTEIN 6.3 g/dL (6.4-8.2)
--- NOTE | 2019-06-09 17:07 | NUR ---
RIGHT BASILIC VESSEL ACCESSED FOR TRIPLE LUMEN PICC. LINE PRE-TRIMMED TO 42CM AND ADVANCED TO THE ZERO CHERYL WITH NO RESISTANCE MET. UPPER ARM CIRCUMFERENCE ABOVE INSERTION SITE= 14 1/2". SHERLOCK MAGNET AND 3CG NOT FUNCTIONAL PATIENT IS IN A-FIB WITH PACEMAKER. POST PROCEDURE CXR SHOWS LINE TERMINATES IN THE DISTAL 1/3 OF THE SVC. STYLET REMOVED, LINE FLUSHED AND REPORT GIVEN TO DR SHAVER.
[2019-06-10] VITALS (75 sets, daily range): BP systolic 64–154; BP diastolic 39–85
[2019-06-10 03:46] LABS: HEMATOCRIT 35.1 % (42.0-52.0); HEMOGLOBIN 11.7 gm/dL (14.0-18.0); MCHC 33.5 g/dL (28.0-37.0); MCV 89.7 fL (80.0-100.0); MPV 9.8 fl. (7.2-11.1); RBC 3.91 mil/uL (4.50-6.00); RDW-CV 13.5 % (10.5-14.5); WBC 8.9 thou/uL (4.0-11.0)
[2019-06-10 04:04] LABS: ALBUMIN 2.6 g/dL (3.4-5.0); CALCIUM 8.9 mg/dL (8.5-10.1); CREATININE 2.3 mg/dL (0.6-1.3); PHOSPHORUS* 4.9 mg/dL (2.5-4.9); POTASSIUM 5.2 mmol/L (3.5-5.1); TOTAL BILIRUBIN 0.4 mg/dL (<0.1-1.0); TOTAL PROTEIN 5.9 g/dL (6.4-8.2); TROPONIN-I LEVEL 0.07 ng/mL (<0.06)
--- NOTE | 2019-06-10 10:45 | NUR ---
PT.ALERT AND ORIENTED. STILL WITH SOME SOA. HE SAID HE LIVES WITH HIS . HE JUST WENT HOME LAST SATURDAY. HE IS ON SERVICE WITH [facility]. HOME HEALTH RT AND PT SAW HIM AT HOME YESTERDAY AND DID NOT LIKE HOW HE LOOKED. THEY CALLED RN AND SHE CAME OUT TO SEE HIM AND SENT HIM TO HOSPITAL. HE WANTS TO CONTINUE TO USE [facility] AT DISCHARGE. HE WEARS O2 AT HOME THROUGH [facility]. HE DOES CHECK HIS BLOOD SUGAR AT HOME-4 TIMES/DAY. HE WAS KNOWLEDGEABLE ABOUT HIS CONDITION. HE SAID WAS TALKING ABOUT MAYBE ORDERING A TRILOGY FOR HIM AT HOME. CM WILL FOLLOW.
[2019-06-10 12:09] LABS: URINE BILIRUBIN NEGATIVE (Negative); URINE BLOOD 3+ (Negative); URINE CLARITY CLEAR; URINE COLOR YELLOW; URINE GLUCOSE-RANDOM 2+ (Negative); URINE KETONES NEGATIVE (Negative); URINE LEUKOCYTES-REFLEX NEGATIVE (Negative); URINE NITRITE-REFLEX NEGATIVE (Negative); URINE PROTEIN NEGATIVE (Negative); URINE UROBILINOGEN 0.2 E.U./dl (0.2-1.0)
[2019-06-10 12:11] LABS: SQUAMOUS NONE SEEN /LPF (0-3); URINE RBC 3-10 Few /HPF (0-2); URINE WBC-REFLEX None Seen /HPF (0-5)
[2019-06-10 12:14] LABS: BACTERIA-REFLEX 1-9 Few /HPF (None Seen)
[2019-06-10 12:15] LABS: HYALINE CASTS 0-3 Few /LPF (None Seen); MUCUS None Seen strn/LPF (None Seen)
[2019-06-10 12:17] LABS: TRIPLE PHOSPHATE CRYSTALS 4-10 Moderate /LPF (None Seen)
[2019-06-10 12:21] LABS: URIC ACID CRYSTALS >10 Many /LPF (None Seen)
--- NOTE | 2019-06-10 14:32 | 2DMMODE ---
[place] [address] 2 D/M-MODE ECHOCARDIOGRAM Name: ADY CHOE Room: 006-P [facility] IN [facility]#: [id number] Admission: 06/09/19 Attend Phys: Yayo Howard Discharge: Date of : 40 Date of Service: 06/10/19 1432 Report #: [id number] THIS REPORT FOR: //name// APPROVED REPORT Study performed: 06/10/2019 09:56:50 EXAM: Comprehensive 2D, Doppler, and color-flow Echocardiogram Patient Location: In-Patient Room #: 006 Status: routine BSA: 2.31 HR: 120 bpm BP: 93/55 mmHg Rhythm: Atrial Fibrillation Other Information Study Quality: Good Indications COPD Atrial Fibrillation Elevated Troponin 2D Dimensions IVSd: 14.43 (7-11mm) LVOT Diam: 21.09 (18-24mm) LVDd: 63.66 mm PWd: 13.40 (7-11mm) Ascending Ao: 36.82 (22-36mm) LVDs: 43.22 (25-40mm) Aortic Root: 43.39 mm Volumes Left Atrial Volume (Systole) LA ESV Index: 31.40 mL/m2 Aortic Valve AoV Peak Edison.: 1.14 m/s AO Peak Gr.: 5.21 mmHg LVOT Max P.52 mmHg AO Mean Gr.: 3.39 mmHg LVOT Mean P.57 mmHg LVOT Max V: 1.06 m/s AO V2 VTI: 17.86 cm LVOT Mean V: 0.73 m/s QUITA (VTI): 3.00 cm2 LVOT V1 VTI: 15.35 cm Pulmonary Valve PV Peak Edison.: 1.40 m/s PV Peak Gr.: 7[place]86 [place] [address] 2 D/M-MODE ECHOCARDIOGRAM Name: ADY CHOE Room: [address]#: [id number] Admission: 06/09/19 Attend Phys: Yayo Howard Discharge: Date of : 40 Date of Service: 06/10/19 1432 Report #: [id number] Tricuspid Valve RAP Estimate: 5.00 mmHg TR Peak Gr.: 37.35 mmHg RVSP: 42.00 mmHg PA Pressure: 42.00 mmHg Left Ventricle The left ventricle is normal size. There is inferobasilar hypokinesis and septal dyskinesis. Mild concentric left ventricular hypertrophy. Left ventricular systolic function is mildly decreased. LVEF is 45%. This study is not technically sufficient to allow evaluation of the LV diastolic function due to atrial fibrillation. Right Ventricle The right ventricle is normal size. The right ventricular systolic function is normal. Pacemaker lead is present in the right ventricle. Atria Left atrium is borderline dilated. The right atrium size is normal. Aortic Valve Mild aortic valve sclerosis. No aortic regurgitation is present. There is no aortic valvular stenosis. Mitral Valve Mild mitral annular calcification. There is no mitral valve regurgitation noted. No evidence of mitral valve stenosis. Tricuspid Valve The tricuspid valve is normal in structure. Trace tricuspid regurgitation. Moderate pulmonary hypertension. Pulmonic Valve The pulmonary valve is normal in structure. There is no pulmonic valvular regurgitation. Great Vessels The aortic root is normal in size. IVC is normal in size and collapses >50% with inspiration. Pericardium There is no pericardial effusion. <Conclusion> The left [place] [address] 2 D/M-MODE ECHOCARDIOGRAM Name: ADY CHOE Room: [address] IN [facility].#: [id number] Admission: 06/09/19 Attend Phys: Yayo Howard Discharge: Date of : 40 Date of Service: 06/10/19 1432 Report #: [id number] Mild concentric left ventricular hypertrophy. Left ventricular systolic function is mildly decreased. LVEF is 45%. This study is not technically sufficient to allow evaluation of the LV diastolic function due to atrial fibrillation. The right ventricle is normal size. Left atrium is borderline dilated. Mild aortic valve sclerosis. No aortic regurgitation is present. There is no aortic valvular stenosis. Mild mitral annular calcification. The tricuspid valve is normal in structure. There is no pericardial effusion. There is inferobasilar hypokinesis and septal dyskinesis. Pacemaker lead is present in the right ventricle. <ELECTRONICALLY SIGNED> By: Ady Mccartney MD, FACC 06/10/19 143 143 143 Ady Mccartney MD, FACC /INF
--- NOTE | 2019-06-10 14:59 | EKG ---
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: : 1940 Requested By: Sree Connelly Order Number: [id number] MD: Ady Mccartney Measurements Intervals [place] Rate: 103 P: AL: QRS: 10 QRSD: 156 T: 157 QT: 339 QTc: 444 Interpretive Statements Atrial fibrillation IVCD, consider atypical LBBB Compared to ECG 06/02/2019 18:02:19 Ventricular-paced complex(es) or rhythm no longer present Atrial-sensed ventricular-paced complex(es) or rhythm no longer present Electronically Signed On 06-10-2019 14:59:36 CDT by Ady Mccartney [email or web address] <ELECTRONICALLY SIGNED> By: Ady Mccartney MD, FACC 06/10/19 1459 1502 1502 Ady Mccartney MD, [facility] /EPI
--- NOTE | 2019-06-10 16:59 | NUR ---
PT RECIEVED CARDIOVERSION BY DR SOLIS. 2 100MG BOTTLES OF FENTANYL AND 2 4MG BOTTLES OF VERSED WITH DRAWN FROM [facility] AND GIVEN TO TRINA BLANCO, FOR PROCEDURE.
--- NOTE | 2019-06-10 17:35 | TEE ---
[place] [address] TRANSESOPHAGEAL ECHOCARDIOGRAM Name: ДМИТРИЙADY Prado Room: [address] IN [facility]#: [id number] Admission: 06/09/19 Attend Phys: Yayo Howard Discharge: Date of : 40 Date of Service: 06/10/19 1735 Report #: [id number] THIS REPORT FOR: //name// APPROVED REPORT Study performed: 06/10/2019 15:59:43 EXAM: Transesophageal Echocardiogram Patient Location: In-Patient Room #: 006 Status: routine BSA: 2.31 HR: 125 bpm BP: 111/75 mmHg Rhythm: Atrial Fibrillation Other Information Study Quality: Good Indications Atrial Fibrillation Echo Enhancing Agent Indication: Rule out Shunt Agent(s) / Amount(s) Used: Agitated Saline 10 cc Procedure After obtaining informed consent, patient underwent transesophageal echo in the Bedside. Type of Sedation : Conscious Sedation Sedation was administered by Demi Pritchett RN. Sedation start time: 1627 Case end Time: 1644 Sedation was achieved intravenously with: Versed (4) Fentanyl (100) Transesophageal probe was inserted and advanced into esophagus without difficulty by Jacky Cheung MD, [facility]. Echo enhancement indication: R/O Septal defect. Echo enhancement agent administered: Agitated Saline The MING was performed without complications. Synchronized Cardioversion acheived with 360 Joules after 1 attempt(s). Rhythm following Synchronized Cardioversion: Normal Sinus Rhythm Throughout the procedure, the blood pressure, pulse oximetry, cardiac rhythm, and rate were monitored. The patient tolerated the procedure [place] [address] TRANSESOPHAGEAL ECHOCARDIOGRAM Name: ДМИТРИЙADY Eve Room: [address] IN [facility].#: [id number] Admission: 06/09/19 Attend Phys: Yayo Howard Discharge: Date of : 40 Date of Service: 06/10/19 1735 Report #: [id number] from conscious sedation was uneventful and vital signs were stable. Left Ventricle The left ventricle is normal size. There is mild global hypokinesis. There is normal left ventricular wall thickness. Left ventricular systolic function is mildly decreased. LVEF is 45%. Right Ventricle The right ventricle is normal size. The right ventricular systolic function is normal. Pacemaker lead is present in the right ventricle. Atria The left atrium size is normal. No thrombus is visualized in the left atrium or appendage. Interatrial septum is intact without evidence of ASD or PFO. The right atrium size is normal. Aortic Valve The aortic valve is normal in structure. No aortic regurgitation is present. There is no aortic valvular stenosis. Mitral Valve The mitral valve is normal in structure. Trace mitral regurgitation. No evidence of mitral valve stenosis. Tricuspid Valve The tricuspid valve is normal in structure. There is no tricuspid valve regurgitation noted. Pulmonic Valve The pulmonary valve is normal in structure. There is no pulmonic valvular regurgitation. Great Vessels The aortic root is normal in size. Pericardium There is no pericardial effusion. <Conclusion> The left ventricle is normal size. There is normal left ventricular wall thickness. Left ventricular systolic function is mildly decreased. LVEF is 45%. Interatrial septum is intact without evidence [place] [address] TRANSESOPHAGEAL ECHOCARDIOGRAM Name: ДМИТРИЙADY Eve Room: [address] IN ..#: [id number] Admission: 06/09/19 Attend Phys: Yayo Howard Discharge: Date of : 40 Date of Service: 06/10/191734 Report #: [id number] The left atrium size is normal. No thrombus is visualized in the left atrium or appendage. <ELECTRONICALLY SIGNED> By: Jacky Cheung MD, FACC 06/10/191734 34 34 Jacky Cheung MD, FACC /INF
[2019-06-11] VITALS (20 sets, daily range): BP systolic 102–139; BP diastolic 50–69
--- NOTE | 2019-06-11 04:42 | NUR ---
ASSUMED CARE AT 1900H, ON NC AT 3LPM. PT SAID, HE FEELS BETTER RIGHT NOW. NO CHEST PAIN NOR BLEEDING NOTED. NO CHANGES IN EKG. PRESSOR STOP AND TOLERATED. CONTINUE MONITORING AND TOWARDS GOAL.
[2019-06-11 05:27] LABS: HEMATOCRIT 32.3 % (42.0-52.0); HEMOGLOBIN 10.8 gm/dL (14.0-18.0); MCH 30.5 pg (26.0-34.0); MCHC 33.5 g/dL (28.0-37.0); MPV 9.9 fl. (7.2-11.1); RBC 3.56 mil/uL (4.50-6.00); RDW-CV 13.6 % (10.5-14.5); WBC 7.7 thou/uL (4.0-11.0)
[2019-06-11 05:31] LABS: CALCIUM 8.5 mg/dL (8.5-10.1); POTASSIUM 5.3 mmol/L (3.5-5.1)
--- NOTE | 2019-06-11 10:15 | NUR ---
ICU ROUNDS: PT.C/O OF SALEH CATHETER BEING PAINFUL AND HIS GREAT TOE HURTING FROM AN INGROWN TOENAIL. NURSING SAID UROLOGY TO BE CONSULTED. PT.HAD SALEH PLACED ABOUT A WEEK AGO FOR RETENTION WHILE HE WAS PREVIOUSLY IN THE HOSPITAL. WAS TO F/U WITH UROLOGY TODAY. CANNOT DO ANYTHING ABOUT HIS TOENAIL AT THIS TIME HE IS ON A BLOOD THINNER. HE SAID HE DOES FEELS HIS CONCENTRATOR IS NOT WORKING AT HOME,CORRECTLY. HE WILL CALL [facility] WHEN HE GETS HOME. CM OFFERED TO CALL FOR HIM BUT HE SAID HE DID NOT WANT THEM CALLING AND BOTHERING HIS WHILE HE WAS GONE. CM WILL FOLLOW.
--- NOTE | 2019-06-11 17:45 | NUR ---
THIS [employer] DRIVER ASSUMED CARE OF PT AFTER RECEIVING SHIFT REPORT AT 0700. PT PROGRESSED TOWARD GOALS HAS BEEN DOWNGRADED TO TELEY STATUS WAITING ON ROOM. PT STATES HE FEELS MUCH BETTER AND IS READY TO GO HOME. PT HAS BEEN ADVANCED TO HIGH DOSE SLIDING SCALES DO TO BLOOD SUGARS BEING IN THE 400'S. PT DID C/O OF PAIN AT THE TIP OF PENIS DO TO CATH, LIDO GEL ORDERED FOR PAIN RELIEF PT MISSED F/U APPOINTMENT UROLOGY CONSULTED D/C THERESE @0600 FOR VOIDING TRIAL Q4H BLADDER SCAN IF RESIDUAL >250 STRAIGHT CATH X3 MAX. CONSUMED ALL MEALS DAUGHTER IN ROOM TO VISIT
[2019-06-12] VITALS (10 sets, daily range): BP systolic 118–134; BP diastolic 52–68
--- NOTE | 2019-06-12 04:59 | NUR ---
ASSUMED CARE AT 1910H, ON NC AT 3LPM AND TOLERATED. NO DISTRESS NOTED.TO REMOVE FC AT 6AM AND TO OBSERVE. CONTINUE MONITORING AND TOWARDS GOAL. NO COMPLAIN OF PENILE PAIN.
--- NOTE | 2019-06-12 16:59 | CARD ---
[address] [address] CARDIAC CATH REPORT Name: ADY CHOE Room: [address] IN M.R.#: [id number] Admission: 06/09/19 Attend Phys: Lottie Lui Discharge: Date of : 40 Report #: [id number] THIS REPORT FOR: //name// CC: Ady Mccartney MD [facility] Valentine Howard PROCEDURE: DC cardioversion. INDICATION: Persistent atrial fibrillation. DESCRIPTION OF PROCEDURE: After informed consent was obtained, the patient underwent a transesophageal echocardiogram. This will be reported separately. Finding no evidence of intracardiac thrombus, the patient underwent direct current cardioversion with a single biphasic shock of 300 joules converting from atrial fibrillation to an atrially sensed, biventricularly paced rhythm. The patient tolerated the procedure well without complication. The patient was given 4 mg of intravenous Versed and 100 mg intravenous fentanyl for conscious sedation. IMPRESSION: 1. Persistent atrial fibrillation. 2. Successful direct current cardioversion as outlined above. <ELECTRONICALLY SIGNED> By: Jacky Cheung MD, FACC 06/12/19 1659 1737 [id number] Cheung MD, FACC /nt
--- NOTE | 2019-06-12 17:58 | NUR ---
PT CARE ASSUMED AFTER REPORT. ASSESSMENT COMPLETE. SR/A PACED ON MONITOR. PT UP TO CHAIR TODAY. ADEQUATE URINE OUTPUT. PROGRESSING TOWARDS GOALS. DENIES PAIN.
--- NOTE | 2019-06-12 18:47 | NUR ---
PT TO TRANSFER TO ROOM 218. REPORT CALLED TO TRINA LLANES. ALL BELONGINGS SENT WITH PT INCLUDING PORTABLE HOME O2.
[2019-06-13 00:24] VITALS: BP 98/41
[2019-06-13 04:12] VITALS: BP 101/56
--- NOTE | 2019-06-13 05:51 | NUR ---
PT CARE ASSUMED AT 1930. SAT MAINTAINED IN O2. ALERT AND ORIENTED X4. CALL LIGHT WITHIN REACH AND BED IN LOW POSITION. DENIES PAIN AND SOB. HOURLY ROUNDING DONE FOR PT SAFETY.
[2019-06-13 06:17] LABS: CALCIUM 8.8 mg/dL (8.5-10.1); CREATININE 1.8 mg/dL (0.6-1.3); POTASSIUM 5.3 mmol/L (3.5-5.1)
[2019-06-13 08:00] VITALS: BP 135/82
[2019-06-13 14:19] VITALS: BP 110/67
[2019-06-13 17:33] VITALS: BP 108/59
--- NOTE | 2019-06-13 18:29 | NUR ---
PATIENT RESTING IN BED. UP AD CASPER IN ROOM, STEADY GAIT. VSS. HOURLY ROUNDING COMPLETED FOR PATIENT SAFETY.
[2019-06-13 19:40] VITALS: BP 105/60
[2019-06-14] VITALS: BP 125/64
[2019-06-14 04:00] VITALS: BP 122/67
--- NOTE | 2019-06-14 06:35 | NUR ---
PT CARE ASSUMED AT 1930. SAT MAINTAINED IN O2. ALERT AND ORIENTED X4. CALL LIGHT WITHIN REACH AND BED IN LOW POSITION. DENIES PAIN. HOURLY ROUNDING DONE FOR PT SAFETY.
[2019-06-14 07:45] VITALS: BP 123/60
[2019-06-14 11:10] VITALS: BP 123/60
[2019-06-14] MEDS ORDERED: AMIODARONE HCL400 MG PO (12:59)
[2019-06-14] MEDS ORDERED: ELIQUIS5 MG PO (13:02)
[2019-06-14 13:31] VITALS: BP 123/60
--- NOTE | 2019-06-14 14:02 | NUR ---
PT IV AND PICC REMOVED INTACT THIS SHIFT. PT EDUCATED TO CALL HOME HEALTH COMPANY TO RESTART SERVICES. DR AIKEN CALLED REGARDING CRESTOR VS LIPITOR AND HE STATED HE COULD RETURN TO HIS CRESTOR HOME MEDICATION AND NOT TO GIVE THE LIPITOR RX. PT HAS O2 FROM HOME TO GO HOME WITH, PT AND VERBALIZED UNDERSTANDING TO DC INSTRUCTIONS AT THIS TIME. PT TAKEN OUT WITH HOSPITAL STAFF VIA WC AT THIS TIME.
== END 2019-06-14 14:23 | disposition home or self-care (01) | DRG 682 ==
LOC: M.ERS 14:20 → M.TBA-ER 16:20 → M.ICU 16:20 → M.2W 06-12 19:16
PROVIDERS: Family Medicine; Internal Medicine; Registered Nurse; ADMIT Internal Medicine
PROC: 02HV33Z Insertion of Infusion Device into Superior Vena Cava, Percutaneous Approach (ICD-10-PCS; principal; 2019-06-09)
PROC: 5A2204Z Restoration of Cardiac Rhythm, Single (ICD-10-PCS; 2019-06-10)
PROC: B24BZZ4 Ultrasonography of Heart with Aorta, Transesophageal (ICD-10-PCS; 2019-06-10)
DX: N17.9 Acute kidney failure, unspecified (principal); J96.20 Acute and chronic respiratory failure, unspecified whether with hypoxia or hypercapnia; J44.1 Chronic obstructive pulmonary disease with (acute) exacerbation; I48.19 Other persistent atrial fibrillation; I13.0 Hypertensive heart and chronic kidney disease with heart failure and stage 1 through stage 4 chronic kidney disease, or unspecified chronic kidney disease; I50.32 Chronic diastolic (congestive) heart failure; I42.8 Other cardiomyopathies; E78.5 Hyperlipidemia, unspecified; I95.9 Hypotension, unspecified; E10.22 Type 1 diabetes mellitus with diabetic chronic kidney disease; R33.9 Retention of urine, unspecified; Z95.810 Presence of automatic (implantable) cardiac defibrillator; Z99.81 Dependence on supplemental oxygen; Z90.49 Acquired absence of other specified parts of digestive tract; Z79.899 Other long term (current) drug therapy; Z79.4 Long term (current) use of insulin; Z79.84 Long term (current) use of oral hypoglycemic drugs; Z88.8 Allergy status to other drugs, medicaments and biological substances; Z87.891 Personal history of nicotine dependence; Z95.2 Presence of prosthetic heart valve; Z23 Encounter for immunization

== ENCOUNTER → 2019-06-23 | Outpatient (CLI) | payer MEDICARE, OTHER ==
[~2019-06-23] MED LIST changes: +AMIODARONE HCL400 MG PO; +ELIQUIS5 MG PO
[2019-06-23 10:08] LABS: HEMATOCRIT 32.9 % (42.0-52.0); HEMOGLOBIN 11.1 gm/dL (14.0-18.0)
[2019-06-23 10:10] LABS: URINE BILIRUBIN NEGATIVE (Negative); URINE BLOOD NEGATIVE (Negative); URINE CLARITY CLEAR; URINE COLOR YELLOW; URINE GLUCOSE-RANDOM NEGATIVE (Negative); URINE KETONES NEGATIVE (Negative); URINE LEUKOCYTES-REFLEX NEGATIVE (Negative); URINE NITRITE-REFLEX NEGATIVE (Negative); URINE PROTEIN NEGATIVE (Negative); URINE SPECIFIC GRAVITY 1.015 (1.005-1.030); URINE UROBILINOGEN 0.2 E.U./dl (0.2-1.0)
[2019-06-23 10:27] LABS: ALBUMIN 2.9 g/dL (3.4-5.0); CALCIUM 9.7 mg/dL (8.5-10.1); CREATININE 1.8 mg/dL (0.6-1.3); PHOSPHORUS* 3.8 mg/dL (2.5-4.9); POTASSIUM 4.9 mmol/L (3.5-5.1); TOTAL BILIRUBIN 0.4 mg/dL (<0.1-1.0); TOTAL PROTEIN 6.4 g/dL (6.4-8.2)
[2019-06-23 10:30] LABS: CALCIUM 9.4 mg/dL (8.5-10.1); CREATININE 1.8 mg/dL (0.6-1.3); PHOSPHORUS* 3.8 mg/dL (2.5-4.9)
[2019-06-23 21:06] LABS: IgA 126 mg/dL (61-437); IgG 388 mg/dL (700-1600); IgM 41 mg/dL (15-143)
[2019-06-24 14:09] LABS: KAPPA FREE LIGHT CHAINS 14.9 mg/L (3.3-19.4); LAMBDA FREE LIGHT CHAINS 10.7 mg/L (5.7-26.3)
[2019-06-25 16:06] LABS: GLOBULIN TOTAL 2.9 g/dL (2.2-3.9); M-SPIKE Not Observed g/dL (Not Observed)
== END ==
LOC: M.LAB 09:40
PROVIDERS: Nurse Practitioner Family
DX: I13.0 Hypertensive heart and chronic kidney disease with heart failure and stage 1 through stage 4 chronic kidney disease, or unspecified chronic kidney disease (principal); N18.3 Chronic kidney disease, stage 3 (moderate); I50.9 Heart failure, unspecified; E10.22 Type 1 diabetes mellitus with diabetic chronic kidney disease

== ENCOUNTER → 2019-09-30 | Outpatient (CLI) | payer MEDICARE, OTHER ==
[2019-09-30 08:49] LABS: HEMATOCRIT 34.6 % (42.0-52.0); HEMOGLOBIN 11.6 gm/dL (14.0-18.0)
[2019-09-30 08:56] LABS: URINE BILIRUBIN NEGATIVE (Negative); URINE BLOOD NEGATIVE (Negative); URINE CLARITY CLEAR; URINE COLOR YELLOW; URINE GLUCOSE-RANDOM NEGATIVE (Negative); URINE KETONES NEGATIVE (Negative); URINE LEUKOCYTES-REFLEX NEGATIVE (Negative); URINE NITRITE-REFLEX NEGATIVE (Negative); URINE PROTEIN NEGATIVE (Negative); URINE SPECIFIC GRAVITY 1.015 (1.005-1.030); URINE UROBILINOGEN 0.2 E.U./dl (0.2-1.0)
[2019-09-30 09:21] LABS: ALBUMIN 3.7 g/dL (3.4-5.0); CALCIUM 9.2 mg/dL (8.5-10.1); CREATININE 1.9 mg/dL (0.6-1.3); PHOSPHORUS* 3.3 mg/dL (2.5-4.9); POTASSIUM 4.7 mmol/L (3.5-5.1); TOTAL BILIRUBIN 0.3 mg/dL (<0.1-1.0); TOTAL PROTEIN 6.9 g/dL (6.4-8.2)
== END ==
LOC: M.LAB 08:19
PROVIDERS: Internal Medicine
DX: N18.3 Chronic kidney disease, stage 3 (moderate) (principal)

== ENCOUNTER → 2019-10-06 | Outpatient (CLI) | payer MEDICARE, OTHER | LOC: M.LAB 13:30 | DX: N40.1 Benign prostatic hyperplasia with lower urinary tract symptoms (principal); N13.8 Other obstructive and reflux uropathy ==

== ENCOUNTER → 2019-12-22 | Outpatient (CLI) | payer MEDICARE, OTHER ==
[2019-12-22 08:55] LABS: ALBUMIN 3.2 g/dL (3.4-5.0); ALKALINE PHOSPHATASE 16 U/L (46-116); ANION GAP 5 mmol/L (7-16); BUN 29 mg/dL (7-18); CALCIUM 9.3 mg/dL (8.5-10.1); CHLORIDE 103 mmol/L (98-107); CHOLESTEROL 209 mg/dL (<200); CO2 31 mmol/L (21-32); CREATININE 2.2 mg/dL (0.6-1.3); HDL CHOLESTEROL 44 mg/dL (>40); LDL CHOLESTEROL 119 mg/dL (<100); NT-PRO BRAIN NAT PEPTIDE 104 pg/mL (<300); POTASSIUM 4.8 mmol/L (3.5-5.1); SGOT 21 U/L (15-37); SGPT 29 U/L (30-65); SODIUM 139 mmol/L (136-145); TC:HDL 4.8 Ratio (Not establshd); TOTAL BILIRUBIN 0.3 mg/dL (<0.1-1.0); TOTAL PROTEIN 6.9 g/dL (6.4-8.2); TRIGLYCERIDE 231 mg/dL (<150); VLDL 46 mg/dL (<40)
[2019-12-22 08:56] LABS: SERUM ASSESSMENT Clear
[2019-12-22 09:42] LABS: GLUCOSE 192 mg/dL (70-99)
[2019-12-23 02:07] LABS: GLYCOHEMOGLOBIN (HGB A1C) 9.5 % (4.8-5.6)
== END ==
LOC: M.LAB 08:04 → M.RAD 08:04
PROVIDERS: Nurse Practitioner
DX: J98.4 Other disorders of lung (principal); E78.2 Mixed hyperlipidemia; E11.9 Type 2 diabetes mellitus without complications; I50.22 Chronic systolic (congestive) heart failure; Z79.899 Other long term (current) drug therapy

== ENCOUNTER 2020-01-15 14:04 | Emergency (ER) | payer MEDICARE, OTHER ==
[~2020-01-15] VITALS: Ht 177.8 cm; Wt 116.1 kg
[2020-01-15] MEDS ORDERED: DORYX MPC120 MG PO (14:26)
[2020-01-15 15:38] LABS: ABSOLUTE BASOPHILS 0.1 thou/uL (0.0-0.2); ABSOLUTE EOSINOPHILS 0.3 thou/uL (0.0-0.7); ABSOLUTE LYMPHOCYTES 1.8 thou/uL (0.8-5.3); ABSOLUTE MONOCYTES 0.7 thou/uL (0.0-1.2); ABSOLUTE NEUTROPHILS 3.5 thou/uL (1.6-8.1); BASOPHILS 1.3 %; EOSINOPHILS 4.6 %; HEMATOCRIT 32.7 % (42.0-52.0); HEMOGLOBIN 11.3 gm/dL (14.0-18.0); LYMPHOCYTES 28.5 %; MCH 30.8 pg (26.0-34.0); MCHC 34.6 g/dL (28.0-37.0); MCV 89.1 fL (80.0-100.0); MONOCYTES 10.3 %; MPV 9.2 fl. (7.2-11.1); NUCLEATED RBCS 0 /100WBC; PLATELET COUNT* 202 thou/uL (150-400); POLYS 55.3 %; RBC 3.67 mil/uL (4.50-6.00); RDW-CV 14.7 % (10.5-14.5); WBC 6.4 thou/uL (4.0-11.0)
[2020-01-15 15:39] LABS: URINE BILIRUBIN NEGATIVE (Negative); URINE BLOOD NEGATIVE (Negative); URINE CLARITY CLEAR; URINE COLOR YELLOW; URINE GLUCOSE-RANDOM NEGATIVE (Negative); URINE KETONES NEGATIVE (Negative); URINE LEUKOCYTES-REFLEX NEGATIVE (Negative); URINE NITRITE-REFLEX NEGATIVE (Negative); URINE PROTEIN NEGATIVE (Negative); URINE SPECIFIC GRAVITY 1.015 (1.005-1.030); URINE UROBILINOGEN 0.2 E.U./dl (0.2-1.0)
[2020-01-15 15:43] LABS: CALCIUM 9.4 mg/dL (8.5-10.1); CREATININE 2.1 mg/dL (0.6-1.3); POTASSIUM 4.7 mmol/L (3.5-5.1)
[2020-01-15 15:46] LABS: APTT 25.4 Seconds (25.0-31.3); INR 1.1; PROTIME 10.8 Seconds (9.20-11.50)
[2020-01-15 15:49] LABS: PO2 117.2 mmHg (75.0-100.0); pH 7.384 (7.340-7.450)
[2020-01-15 15:50] LABS: BE 5.5 mmol/L (-2 to +3)
[2020-01-15 15:52] LABS: PCO2 54.3 mmHg (35.0-45.0)
[2020-01-15 15:55] LABS: ALBUMIN 3.6 g/dL (3.4-5.0); MAGNESIUM 1.7 mg/dL (1.8-2.4); TOTAL BILIRUBIN 0.4 mg/dL (<0.1-1.0); TOTAL PROTEIN 7.6 g/dL (6.4-8.2)
--- NOTE | 2020-01-15 16:30 | EKG ---
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: : 1940 Requested By: Sarah Beth Rocha Order Number: [id number] MD: Ady Mccartney Measurements Intervals [place] Rate: 67 P: 81 RI: 129 QRS: 172 QRSD: 190 T: 80 QT: 520 QTc: 549 Interpretive Statements Atrial-sensed ventricular-paced rhythm No further analysis attempted due to paced rhythm Baseline wander in lead(s) V6 Compared to ECG 06/09/2019 15:02:10 Atrial fibrillation no longer present Electronically Signed On 01-15-2020 16:27:58 CDT by Ady Mccartney [email or web address] <ELECTRONICALLY SIGNED> By: Ady Mccartney MD, [facility] 01/15/20 1627 1423 1423 Ady Mccartney MD, [facility] /EPI
[2020-01-15] MEDS ORDERED: ZPAK PO (17:23)
[2020-01-15] MEDS ORDERED: MEDROLDOSEPACK PO (17:23)
[2020-01-15 17:45] VITALS: BP 115/40
== END 2020-01-15 17:45 | disposition home or self-care (01) ==
LOC: M.ERS 14:04
PROVIDERS: Personal Emergency Response Attendant
DX: J44.1 Chronic obstructive pulmonary disease with (acute) exacerbation (principal); I11.0 Hypertensive heart disease with heart failure; I50.9 Heart failure, unspecified; E11.9 Type 2 diabetes mellitus without complications; E78.5 Hyperlipidemia, unspecified; Z90.49 Acquired absence of other specified parts of digestive tract; Z87.891 Personal history of nicotine dependence; Z88.8 Allergy status to other drugs, medicaments and biological substances

== ENCOUNTER 2020-01-16 11:40 | Inpatient (IN) | payer MEDICARE, OTHER ==
[~2020-01-16] VITALS: Ht 177.8 cm; Wt 124.0 kg
[~2020-01-16 11:40] MED LIST changes: +DORYX MPC120 MG PO; +MEDROLDOSEPACK PO
[2020-01-16 12:16] LABS: HEMOGLOBIN 11.5 gm/dL (14.0-18.0)
[2020-01-16 12:18] LABS: HEMATOCRIT 34.5 % (42.0-52.0); MCH 30.4 pg (26.0-34.0); MCHC 33.2 g/dL (28.0-37.0); MCV 91.6 fL (80.0-100.0); NUCLEATED RBCS 0 /100WBC; PLATELET COUNT* 227 thou/uL (150-400); RBC 3.77 mil/uL (4.50-6.00); RDW-CV 14.6 % (10.5-14.5); WBC 9.3 thou/uL (4.0-11.0)
[2020-01-16 12:37] LABS: ALBUMIN 3.4 g/dL (3.4-5.0); CALCIUM 9.3 mg/dL (8.5-10.1); CREATININE 2.6 mg/dL (0.6-1.3); MAGNESIUM 1.7 mg/dL (1.8-2.4); POTASSIUM 4.8 mmol/L (3.5-5.1); TOTAL BILIRUBIN 0.3 mg/dL (<0.1-1.0); TOTAL PROTEIN 7.7 g/dL (6.4-8.2)
[2020-01-16 12:48] LABS: ABSOLUTE LYMPHOCYTES 0.8 thou/uL (0.8-5.3); ABSOLUTE MONOCYTES 0.2 thou/uL (0.0-1.2); ABSOLUTE NEUTROPHILS 8.3 thou/uL (1.6-8.1)
[2020-01-16 12:49] LABS: PLATELET ESTIMATE ADEQUATE
[2020-01-16 12:50] LABS: ANISOCYTOSIS Occasional
[2020-01-16 13:49] VITALS: BP 119/55
[2020-01-16 14:19] VITALS: BP 119/55
[2020-01-16 14:20] VITALS: BP 142/61
[2020-01-16 20:00] VITALS: BP 137/46
[2020-01-17] VITALS (8 sets, daily range): BP systolic 100–137; BP diastolic 34–56
[2020-01-17 04:12] LABS: ABSOLUTE LYMPHOCYTES 0.8 thou/uL (0.8-5.3); ABSOLUTE MONOCYTES 0.6 thou/uL (0.0-1.2); ABSOLUTE NEUTROPHILS 8.3 thou/uL (1.6-8.1); BASOPHILS 0.1 %; HEMATOCRIT 28.3 % (42.0-52.0); HEMOGLOBIN 9.7 gm/dL (14.0-18.0); LYMPHOCYTES 8.3 %; MCH 30.8 pg (26.0-34.0); MCHC 34.1 g/dL (28.0-37.0); MCV 90.3 fL (80.0-100.0); MONOCYTES 5.9 %; MPV 8.8 fl. (7.2-11.1); NUCLEATED RBCS 0 /100WBC; PLATELET COUNT* 190 thou/uL (150-400); POLYS 85.7 %; RBC 3.13 mil/uL (4.50-6.00); RDW-CV 14.8 % (10.5-14.5); WBC 9.6 thou/uL (4.0-11.0)
[2020-01-17 04:27] LABS: CALCIUM 8.2 mg/dL (8.5-10.1); CREATININE 2.4 mg/dL (0.6-1.3); POTASSIUM 4.8 mmol/L (3.5-5.1)
--- NOTE | 2020-01-17 11:05 | EKG ---
[place] [address] ELECTROCARDIOGRAM REPORT Name: ДМИТРИЙADY Prado Room: [address] IN [facility].#: [id number] Admission: 01/16/20 Attend Phys: Mahendra Gomez, Discharge: Date of : 40 Date of Service: 01/16/20 1209 Report #: [id number] THIS REPORT FOR: //name// [facility] ED Test Date: 2020-01-16 Test Time: 12:09:47 Pat Name: ADY CHOE Department: Room: [facility] Gender: M Speech Lang Path: : 1940 Requested By: Levar Napoles Order Number: [id number] MD: Ady Mccartney Measurements Intervals [place] Rate: 86 P: 70 [place]: 166 QRS: 174 QRSD: 177 T: 62 QT: 457 QTc: 547 Interpretive Statements Atrial-sensed ventricular-paced rhythm No further analysis attempted due to paced rhythm Baseline wander in lead(s) V1 Compared to ECG 01/15/2020 14:23:44 No significant changes Electronically Signed On 01-17-2020 11:03:52 CDT by Ady Mccartney [email or web address] <ELECTRONICALLY SIGNED> By: Ady Mccartney MD, FACC 01/17/20 1103 1209 1209 Ady Mccartney MD, FAC /EPI
[2020-01-18 04:07] LABS: GLYCOHEMOGLOBIN (HGB A1C) 9.3 % (4.8-5.6)
[2020-01-18 05:04] VITALS: BP 102/42; BP 97/60
[2020-01-18 05:06] LABS: ABSOLUTE MONOCYTES 0.6 thou/uL (0.0-1.2); ABSOLUTE NEUTROPHILS 7.3 thou/uL (1.6-8.1); BASOPHILS 0.1 %; HEMATOCRIT 28.2 % (42.0-52.0); HEMOGLOBIN 9.6 gm/dL (14.0-18.0); MCH 30.7 pg (26.0-34.0); MCHC 34.1 g/dL (28.0-37.0); MCV 90.1 fL (80.0-100.0); MONOCYTES 7.2 %; MPV 9.1 fl. (7.2-11.1); NUCLEATED RBCS 0 /100WBC; PLATELET COUNT* 195 thou/uL (150-400); POLYS 81.7 %; RBC 3.13 mil/uL (4.50-6.00); WBC 8.9 thou/uL (4.0-11.0)
[2020-01-18 05:19] LABS: ALBUMIN 2.6 g/dL (3.4-5.0); CALCIUM 8.3 mg/dL (8.5-10.1); CREATININE 2.3 mg/dL (0.6-1.3); POTASSIUM 4.8 mmol/L (3.5-5.1); TOTAL BILIRUBIN 0.2 mg/dL (<0.1-1.0); TOTAL PROTEIN 5.8 g/dL (6.4-8.2)
--- NOTE | 2020-01-18 07:48 | CON ---
[address] [address] CONSULTATION Name: ADY CHOE Room: [address] IN M.R.#: [id number] Admission: 01/16/20 Attend Phys: Mahendra Gomez MD Discharge: Date of : 40 Report #: [id number] THIS REPORT FOR: //name// cc: Valentine Ratliff Maggie M. DO ~ THIS REPORT FOR: //name// CC: Mahendra Ratliff DATE OF SERVICE: 01/17/2020 INFECTIOUS DISEASE CONSULTATION ATTENDING PHYSICIAN: Mahendra Gomez MD REASON FOR EVALUATION: Positive blood culture, recommendation for antibiotic therapy. HISTORY OF PRESENT ILLNESS: Chart reviewed, patient examined. This is a 79-year-old, known history of severe obstructive lung disease. He is normally on 3 liters of nasal cannula per supplemental oxygen. He is actually evaluated earlier this week with complaints of progressive dyspnea, was felt to have an exacerbation of his COPD. Initial studies were fairly unremarkable. He was discharged home on some medical therapy. Noted, chest x-ray was otherwise unremarkable or anything acute; however, I did 2 blood cultures, one of which has now growing gram-positive cocci. He was called and asked to come back to the Emergency Room. Reevaluation noted lactic acid was now 4.5 that was up from 1.0. Blood sugar was markedly elevated at 521, creatinine of 2.6, not clear that he has had any fevers or chills. He notes his appetite generally has been pretty good. He does not have any trouble eating in terms of his dyspnea. Had required increase of oxygen from 3-5 liters. He was given corticosteroids as well, which exacerbated his blood sugars. He is not encephalopathic. ALLERGIES: INCLUDE NIACIN. MEDICATIONS: Include prednisone 40 daily, furosemide, tamsulosin, fenofibrate, spironolactone, vancomycin, insulin, levothyroxine, pantoprazole, ipratropium and albuterol inhaler, apixaban, sacubitril and valsartan combination, carvedilol, insulin. Had been given a dose of ceftriaxone as well. PAST MEDICAL HISTORY: Includes diabetes mellitus type 2, insulin requiring, complicated by vasculopathy; cardiomyopathy with congestive heart failure; history of hypertension; hyperlipidemia; does have a history of atrial dysrhythmias, he has AICD in place; history of O2 requiring COPD, [place] [address] CONSULTATION Name: ADY CHOE Room: [address]#: [id number] Admission: 01/16/20 Attend Phys: Mahendra Gomez MD Discharge: Date of : 40 Report #: [id number] SOCIAL HISTORY: Long time smoker, smoked for 40 years, although quit at age 63. No ethanol. No illicit drug use. FAMILY HISTORY: Noncontributory. REVIEW OF SYSTEMS: Denies any significant gastrointestinal-related complaints. PHYSICAL EXAMINATION: GENERAL: He appears somewhat chronically ill, undernourished. He is obese. VITAL SIGNS: Temperature 97.9, pulse 60, respirations 18, blood pressure 117/55. SKIN: Warm, dry, no rashes. HEENT: Normocephalic. Extraocular muscles intact. NECK: Supple. LUNGS: Diminished breath sounds overall, few scattered crackles, primarily at the bases. HEART: Appears to be regular. I do not appreciate a murmur. ABDOMEN: Obese, soft, nontender. EXTREMITIES: No cyanosis. Does have some peripheral edema. GENITOURINARY: Deferred. RECTAL: Deferred. LABORATORY DATA: As described above, 1 out 2 blood cultures with Gram-positive cocci identified as a coag-negative staph. Electrolytes: Sodium 136, potassium 4.8, chloride 100, bicarbonate is 30, anion gap of 6, BUN and creatinine 47 and 2.4. Estimated GFR of 26. CBC: White count 9.6, H and H 9.7 and 28.3, platelets of 190. Total lymphocyte count of 800. Blood sugars have been markedly elevated often greater than 500. Lactic acid 4.6, followup 3.7, now 2.7. Troponin less than 0.06. Chest x-ray x 2 showed no acute cardiopulmonary processes inflammation. Liver functions otherwise unremarkable. Albumin of 3.4. Total protein 7.7. ABGs: pH 7.384, pCO2 of 54.3, pO2 of 117.2 on 3 liters, which is his baseline. ASSESSMENT AND PLAN: Positive blood culture. In this setting, I think it is almost certainly a false positive or contaminant. It is clear he has got some significant chronic underlying pulmonary-related complaints and I do not see evidence of respiratory tract infection at this point. It is not reasonable to continue the vancomycin for the moment, may be another 24 hours. We will see how the cultures ultimately clarify. He is certainly at risk for infectious complications. We will monitor expectantly. <ELECTRONICALLY SIGNED> By: Jayden Rome MD 01/18/20 0748 1055 [id number] Rome MD /nt
[2020-01-18 07:51] VITALS: BP 114/57
[2020-01-18 12:17] VITALS: BP 115/52
[2020-01-18 16:00] VITALS: BP 110/50
[2020-01-18 20:00] VITALS: BP 111/53
[2020-01-18 23:58] VITALS: BP 111/51
[2020-01-19 04:38] VITALS: BP 102/51
[2020-01-19 07:34] VITALS: BP 119/55
[2020-01-19 09:29] VITALS: BP 119/55
[2020-01-19] MEDS ORDERED: CEFDINIR300 MG PO (11:00)
[2020-01-19 11:09] VITALS: BP 119/55
[2020-01-19 11:30] VITALS: BP 100/55
== END 2020-01-19 11:55 | disposition home health service (06) | DRG 871 ==
LOC: M.ERS 11:40 → M.TBA-ER 12:54 → M.2W 12:54
PROVIDERS: Emergency Medicine Emergency Medical Services; ADMIT Internal Medicine
PROC: 5A09357 Assistance with Respiratory Ventilation, Less than 24 Consecutive Hours, Continuous Positive Airway Pressure (ICD-10-PCS; principal; 2020-01-17)
PROC: 5A09357 Assistance with Respiratory Ventilation, Less than 24 Consecutive Hours, Continuous Positive Airway Pressure (ICD-10-PCS; 2020-01-18)
PROC: 5A09357 Assistance with Respiratory Ventilation, Less than 24 Consecutive Hours, Continuous Positive Airway Pressure (ICD-10-PCS; 2020-01-19)
DX: A41.9 Sepsis, unspecified organism (principal); J96.20 Acute and chronic respiratory failure, unspecified whether with hypoxia or hypercapnia; I50.43 Acute on chronic combined systolic (congestive) and diastolic (congestive) heart failure; J44.1 Chronic obstructive pulmonary disease with (acute) exacerbation; I43 Cardiomyopathy in diseases classified elsewhere; M31.9 Necrotizing vasculopathy, unspecified; E87.2 Acidosis; N17.9 Acute kidney failure, unspecified; I13.0 Hypertensive heart and chronic kidney disease with heart failure and stage 1 through stage 4 chronic kidney disease, or unspecified chronic kidney disease; E11.69 Type 2 diabetes mellitus with other specified complication; E78.5 Hyperlipidemia, unspecified; E11.65 Type 2 diabetes mellitus with hyperglycemia; E11.22 Type 2 diabetes mellitus with diabetic chronic kidney disease; G47.33 Obstructive sleep apnea (adult) (pediatric); N18.9 Chronic kidney disease, unspecified; D64.9 Anemia, unspecified; E66.01 Morbid (severe) obesity due to excess calories; Z68.39 Body mass index [BMI] 39.0-39.9, adult; Z87.891 Personal history of nicotine dependence; Z90.49 Acquired absence of other specified parts of digestive tract; Z88.8 Allergy status to other drugs, medicaments and biological substances; Z79.4 Long term (current) use of insulin; Z79.84 Long term (current) use of oral hypoglycemic drugs; Z79.01 Long term (current) use of anticoagulants; Z79.899 Other long term (current) drug therapy; Z99.81 Dependence on supplemental oxygen; Z95.810 Presence of automatic (implantable) cardiac defibrillator

== ENCOUNTER → 2020-02-08 | Outpatient (CLI) | payer MEDICARE, OTHER ==
[2020-02-08 10:33] LABS: ABSOLUTE BASOPHILS 0.1 thou/uL (0.0-0.2); ABSOLUTE EOSINOPHILS 0.3 thou/uL (0.0-0.7); ABSOLUTE LYMPHOCYTES 1.3 thou/uL (0.8-5.3); ABSOLUTE MONOCYTES 0.4 thou/uL (0.0-1.2); ABSOLUTE NEUTROPHILS 6.6 thou/uL (1.6-8.1); BASOPHILS 1.1 %; EOSINOPHILS 3.6 %; HEMATOCRIT 35.1 % (42.0-52.0); HEMOGLOBIN 11.8 gm/dL (14.0-18.0); LYMPHOCYTES 14.9 %; MCH 30.2 pg (26.0-34.0); MCHC 33.6 g/dL (28.0-37.0); MONOCYTES 4.9 %; MPV 8.6 fl. (7.2-11.1); NUCLEATED RBCS 0 /100WBC; PLATELET COUNT* 204 thou/uL (150-400); POLYS 75.5 %; RBC 3.89 mil/uL (4.50-6.00); RDW-CV 14.4 % (10.5-14.5); WBC 8.8 thou/uL (4.0-11.0)
[2020-02-08 10:39] LABS: CALCIUM 9.6 mg/dL (8.5-10.1); CREATININE 2.2 mg/dL (0.6-1.3); MAGNESIUM 1.9 mg/dL (1.8-2.4); PHOSPHORUS* 3.4 mg/dL (2.5-4.9); POTASSIUM 5.2 mmol/L (3.5-5.1)
[2020-02-08 10:48] LABS: CALCIUM 9.5 mg/dL (8.5-10.1); CREATININE 2.2 mg/dL (0.6-1.3); PHOSPHORUS* 3.4 mg/dL (2.5-4.9)
--- NOTE | 2020-02-10 17:07 | PATH ---
[address] [address] PATHOLOGY RPT PROCEDURE Name: ADY CHOE Room: [facility] Cynthia#: [id number] Admission: 02/08/20 Date of : 40 Discharge: Report #: [id number] Path Case #: [id number] Note [facility] Accession Number: [id number] TESTS RESULT FLAG UNITS REF RANGE LAB Clinician Provided Cytology Information No. of containers..01 Urine Bottle Source: URINE DIAGNOSIS: 02 URINE NEGATIVE FOR HIGH-GRADE UROTHELIAL CARCINOMA (NHGUC). PREDOMINANTLY SQUAMOUS CELLS ARE PRESENT. FEW UROTHELIAL CELLS ARE PRESENT. OCCASIONAL UROTHELIAL CELLS WITH REACTIVE CHANGES ARE NOTED AMONGST NUMEROUS SQUAMOUS EPITHELIAL CELLS. YEAST AND PSEUDOHYPHAE ARE ALSO PRESENT. CLINICAL CORRELATION IS RECOMMENDED. Pathologist ICD10: 02 R82.79 Signed out by: 02 Lindsey Bird MD, Pathologist NPI- [id number] Performed by: 01 Jeanne Yang, [place] ([facility]) Gross description: 01 60ML, CLEAR YELLOW, 1 TP /LCS 02/09/2020 1104 Local FLAG LEGEND: L-Low Normal,H-High Normal,LL-Alert Low,HH-Alert High <-Panic Low,>-Panic High,A-Abnormal,AA-Critical Abnormal Performed at: [address] [place] [address] Tony Guzman MD, [address] [place] [address] [place] [address] Ravi Craft MD, Specimen Comment: A courtesy copy of this report has been sent to [phone] Specimen Comment: Report sent to / DR ROUSE Performed at: [address], [place], [place] [id number] MD Tony Guzman MD Phone: [phone]
== END ==
LOC: M.LAB 09:55
PROVIDERS: ATTEND Internal Medicine
DX: N18.3 Chronic kidney disease, stage 3 (moderate) (principal)

== ENCOUNTER → 2020-05-11 | Outpatient (CLI) | payer MEDICARE, OTHER ==
[2020-05-11 09:34] LABS: URINE BILIRUBIN NEGATIVE (Negative); URINE BLOOD NEGATIVE (Negative); URINE CLARITY CLEAR; URINE COLOR YELLOW; URINE GLUCOSE-RANDOM NEGATIVE (Negative); URINE KETONES NEGATIVE (Negative); URINE LEUKOCYTES NEGATIVE (Negative); URINE NITRITE NEGATIVE (Negative); URINE PROTEIN NEGATIVE (Negative); URINE SPECIFIC GRAVITY 1.025 (1.005-1.030); URINE UROBILINOGEN 0.2 E.U./dl (0.2-1.0)
[2020-05-11 09:39] LABS: ABSOLUTE BASOPHILS 0.1 thou/uL (0.0-0.2); ABSOLUTE EOSINOPHILS 0.4 thou/uL (0.0-0.7); ABSOLUTE MONOCYTES 0.7 thou/uL (0.0-1.2); ABSOLUTE NEUTROPHILS 4.7 thou/uL (1.6-8.1); BASOPHILS 1.1 %; EOSINOPHILS 5.6 %; HEMATOCRIT 35.5 % (42.0-52.0); LYMPHOCYTES 25.4 %; MCH 29.5 pg (26.0-34.0); MCHC 33.7 g/dL (28.0-37.0); MCV 87.5 fL (80.0-100.0); MONOCYTES 9.2 %; NUCLEATED RBCS 0 /100WBC; PLATELET COUNT* 206 thou/uL (150-400); POLYS 58.7 %; RBC 4.06 mil/uL (4.50-6.00); RDW-CV 13.9 % (10.5-14.5)
[2020-05-11 09:44] LABS: ALBUMIN 3.6 g/dL (3.4-5.0); ALKALINE PHOSPHATASE 36 U/L (46-116); ANION GAP 7 mmol/L (7-16); BUN 32 mg/dL (7-18); CHLORIDE 100 mmol/L (98-107); CHOLESTEROL 201 mg/dL (<200); CO2 30 mmol/L (21-32); GLUCOSE 223 mg/dL (70-99); HDL CHOLESTEROL 39 mg/dL (>40); LDL CHOLESTEROL 102 mg/dL (<100); POTASSIUM 4.4 mmol/L (3.5-5.1); SGOT 28 U/L (15-37); SGPT 32 U/L (30-65); SODIUM 137 mmol/L (136-145); TC:HDL 5.2 Ratio (Not establshd); TOTAL BILIRUBIN 0.4 mg/dL (<0.1-1.0); TOTAL PROTEIN 7.5 g/dL (6.4-8.2); TRIGLYCERIDE 301 mg/dL (<150); VLDL 60 mg/dL (<40)
[2020-05-11 09:45] LABS: SERUM ASSESSMENT Clear
[2020-05-12 02:06] LABS: GLYCOHEMOGLOBIN (HGB A1C) 9.1 % (4.8-5.6)
== END ==
LOC: M.LAB 09:07
PROVIDERS: ATTEND Internal Medicine
DX: E11.22 Type 2 diabetes mellitus with diabetic chronic kidney disease (principal); I12.9 Hypertensive chronic kidney disease with stage 1 through stage 4 chronic kidney disease, or unspecified chronic kidney disease; N18.3 Chronic kidney disease, stage 3 (moderate); R94.8 Abnormal results of function studies of other organs and systems; E78.5 Hyperlipidemia, unspecified

== ENCOUNTER → 2020-06-01 | Outpatient (CLI) | payer MEDICARE, OTHER ==
[2020-06-01 09:23] LABS: ABSOLUTE BASOPHILS 0.1 thou/uL (0.0-0.2); ABSOLUTE EOSINOPHILS 0.4 thou/uL (0.0-0.7); ABSOLUTE MONOCYTES 0.6 thou/uL (0.0-1.2); ABSOLUTE NEUTROPHILS 3.3 thou/uL (1.6-8.1); BASOPHILS 1.1 %; EOSINOPHILS 6.3 %; HEMATOCRIT 35.4 % (42.0-52.0); HEMOGLOBIN 11.8 gm/dL (14.0-18.0); LYMPHOCYTES 31.6 %; MCH 29.3 pg (26.0-34.0); MCHC 33.3 g/dL (28.0-37.0); MCV 88.1 fL (80.0-100.0); MONOCYTES 9.6 %; NUCLEATED RBCS 0 /100WBC; PLATELET COUNT* 221 thou/uL (150-400); POLYS 51.4 %; RBC 4.01 mil/uL (4.50-6.00); WBC 6.3 thou/uL (4.0-11.0)
[2020-06-01 09:25] LABS: URINE BILIRUBIN NEGATIVE (Negative); URINE BLOOD NEGATIVE (Negative); URINE CLARITY CLEAR; URINE COLOR YELLOW; URINE GLUCOSE-RANDOM TRACE (Negative); URINE KETONES NEGATIVE (Negative); URINE LEUKOCYTES NEGATIVE (Negative); URINE NITRITE NEGATIVE (Negative); URINE PROTEIN NEGATIVE (Negative); URINE SPECIFIC GRAVITY 1.025 (1.005-1.030); URINE UROBILINOGEN 0.2 E.U./dl (0.2-1.0)
[2020-06-01 09:46] LABS: CALCIUM 9.6 mg/dL (8.5-10.1); CREATININE 1.8 mg/dL (0.6-1.3); MAGNESIUM 1.7 mg/dL (1.8-2.4); PHOSPHORUS* 4.1 mg/dL (2.5-4.9); POTASSIUM 4.4 mmol/L (3.5-5.1)
[2020-06-01 09:54] LABS: CALCIUM 9.4 mg/dL (8.5-10.1); CREATININE 1.8 mg/dL (0.6-1.3); PHOSPHORUS* 4.3 mg/dL (2.5-4.9)
== END ==
LOC: M.LAB 08:54
PROVIDERS: ATTEND Nurse Practitioner Family
DX: N18.30 Chronic kidney disease, stage 3 unspecified (principal)

== ENCOUNTER → 2020-08-24 | Outpatient (CLI) | payer OTHER | LOC: M.LAB 12:34 | PROVIDERS: ATTEND Urology | DX: N13.8 Other obstructive and reflux uropathy (principal); N40.1 Benign prostatic hyperplasia with lower urinary tract symptoms ==

== ENCOUNTER → 2020-09-08 | Outpatient (CLI) | payer OTHER, MEDICARE | LOC: M.ULTRA 10:14 | PROVIDERS: ATTEND Urology | DX: N28.1 Cyst of kidney, acquired (principal) ==

== ENCOUNTER → 2020-09-15 | Outpatient (CLI) | payer OTHER, MEDICARE ==
[2020-09-15 08:48] LABS: HEMATOCRIT 35.1 % (42.0-52.0); HEMOGLOBIN 11.4 gm/dL (14.0-18.0)
[2020-09-15 08:56] LABS: URINE BILIRUBIN NEGATIVE (Negative); URINE BLOOD NEGATIVE (Negative); URINE CLARITY CLEAR; URINE COLOR YELLOW; URINE GLUCOSE-RANDOM NEGATIVE (Negative); URINE KETONES NEGATIVE (Negative); URINE LEUKOCYTES-REFLEX NEGATIVE (Negative); URINE NITRITE-REFLEX NEGATIVE (Negative); URINE PROTEIN NEGATIVE (Negative); URINE SPECIFIC GRAVITY 1.025 (1.005-1.030); URINE UROBILINOGEN 0.2 E.U./dl (0.2-1.0)
[2020-09-15 09:00] LABS: ALBUMIN 3.6 g/dL (3.4-5.0); CALCIUM 9.3 mg/dL (8.5-10.1); CREATININE 1.9 mg/dL (0.6-1.3); POTASSIUM 4.2 mmol/L (3.5-5.1); TOTAL BILIRUBIN 0.3 mg/dL (<0.1-1.0); TOTAL PROTEIN 7.3 g/dL (6.4-8.2)
[2020-09-15 09:11] LABS: CALCIUM 9.4 mg/dL (8.5-10.1); CREATININE 1.9 mg/dL (0.6-1.3); PHOSPHORUS* 4.1 mg/dL (2.5-4.9)
== END ==
LOC: M.LAB 08:29
PROVIDERS: ATTEND Nurse Practitioner Family
DX: N18.32 Chronic kidney disease, stage 3b (principal)

== ENCOUNTER → 2020-10-26 | Outpatient (CLI) | payer OTHER, MEDICARE ==
[2020-10-27 02:06] LABS: GLYCOHEMOGLOBIN (HGB A1C) 8.5 % (4.8-5.6)
== END ==
LOC: M.LAB 08:24
PROVIDERS: ATTEND Family Medicine
DX: E11.9 Type 2 diabetes mellitus without complications (principal)

== ENCOUNTER → 2021-01-23 | Outpatient (CLI) | payer OTHER ==
[2021-01-23 08:35] LABS: HEMATOCRIT 31.8 % (42.0-52.0); HEMOGLOBIN 10.8 gm/dL (14.0-18.0); MCH 29.7 pg (26.0-34.0); MCHC 33.8 g/dL (28.0-37.0); MCV 87.8 fL (80.0-100.0); MPV 7.9 fl. (7.2-11.1); RBC 3.63 mil/uL (4.50-6.00); RDW-CV 13.8 % (10.5-14.5); WBC 6.7 thou/uL (4.0-11.0)
[2021-01-23 09:01] LABS: ALBUMIN 3.8 g/dL (3.4-5.0); ALKALINE PHOSPHATASE 32 U/L (46-116); CHOLESTEROL 194 mg/dL (<200); DIRECT BILIRUBIN 0.1 mg/dL (<0.1-0.3); HDL CHOLESTEROL 38 mg/dL (>40); LDL CHOLESTEROL 94 mg/dL (<100); PHOSPHORUS* 4.2 mg/dL (2.5-4.9); SGOT 25 U/L (15-37); SGPT 22 U/L (30-65); TC:HDL 5.1 Ratio (Not establshd); TOTAL BILIRUBIN 0.2 mg/dL (<0.1-1.0); TOTAL PROTEIN 7.5 g/dL (6.4-8.2); TRIGLYCERIDE 310 mg/dL (<150); VLDL 62 mg/dL (<40)
[2021-01-23 09:04] LABS: CALCIUM 9.6 mg/dL (8.5-10.1); PHOSPHORUS* 4.2 mg/dL (2.5-4.9)
[2021-01-23 09:06] LABS: SERUM ASSESSMENT Clear
== END ==
LOC: M.LAB 08:07
PROVIDERS: ATTEND Registered Nurse
DX: I12.9 Hypertensive chronic kidney disease with stage 1 through stage 4 chronic kidney disease, or unspecified chronic kidney disease (principal); E03.9 Hypothyroidism, unspecified; E78.2 Mixed hyperlipidemia; N18.32 Chronic kidney disease, stage 3b; E11.22 Type 2 diabetes mellitus with diabetic chronic kidney disease

== ENCOUNTER → 2021-05-25 | Outpatient (CLI) | payer OTHER ==
[2021-05-25 08:58] LABS: ABSOLUTE BASOPHILS 0.1 thou/uL (0.0-0.2); ABSOLUTE EOSINOPHILS 0.3 thou/uL (0.0-0.7); ABSOLUTE LYMPHOCYTES 2.3 thou/uL (0.8-5.3); ABSOLUTE MONOCYTES 0.6 thou/uL (0.0-1.2); ABSOLUTE NEUTROPHILS 3.1 thou/uL (1.6-8.1); BASOPHILS 0.9 %; EOSINOPHILS 4.1 %; HEMATOCRIT 32.6 % (42.0-52.0); HEMOGLOBIN 10.8 gm/dL (14.0-18.0); LYMPHOCYTES 37.4 %; MCHC 33.1 g/dL (28.0-37.0); MCV 87.6 fL (80.0-100.0); MONOCYTES 8.8 %; MPV 7.7 fl. (7.2-11.1); NUCLEATED RBCS 0 /100WBC; PLATELET COUNT* 193 thou/uL (150-400); POLYS 48.8 %; RBC 3.72 mil/uL (4.50-6.00); RDW-CV 13.8 % (10.5-14.5); WBC 6.3 thou/uL (4.0-11.0)
[2021-05-25 09:09] LABS: CALCIUM 9.5 mg/dL (8.5-10.1); CREATININE 1.8 mg/dL (0.6-1.3); MAGNESIUM 1.5 mg/dL (1.8-2.4); PHOSPHORUS* 4.3 mg/dL (2.5-4.9); POTASSIUM 4.5 mmol/L (3.5-5.1)
== END ==
LOC: M.LAB 08:30
PROVIDERS: ATTEND Nurse Practitioner Family
DX: N18.30 Chronic kidney disease, stage 3 unspecified (principal)

== ENCOUNTER → 2021-08-04 | Outpatient (CLI) | payer OTHER ==
[2021-08-04 08:49] LABS: ABSOLUTE BASOPHILS 0.1 thou/uL (0.0-0.2); ABSOLUTE EOSINOPHILS 0.3 thou/uL (0.0-0.7); ABSOLUTE MONOCYTES 0.6 thou/uL (0.0-1.2); ABSOLUTE NEUTROPHILS 3.6 thou/uL (1.6-8.1); BASOPHILS 0.9 %; EOSINOPHILS 4.4 %; HEMATOCRIT 33.3 % (42.0-52.0); LYMPHOCYTES 30.6 %; MCH 29.3 pg (26.0-34.0); MCHC 33.1 g/dL (28.0-37.0); MCV 88.5 fL (80.0-100.0); MONOCYTES 9.9 %; MPV 7.9 fl. (7.2-11.1); NUCLEATED RBCS 0 /100WBC; PLATELET COUNT* 191 thou/uL (150-400); POLYS 54.2 %; RBC 3.77 mil/uL (4.50-6.00); RDW-CV 13.9 % (10.5-14.5); URINE BILIRUBIN NEGATIVE (Negative); URINE BLOOD NEGATIVE (Negative); URINE CLARITY CLEAR; URINE COLOR YELLOW; URINE GLUCOSE-RANDOM NEGATIVE (Negative); URINE KETONES NEGATIVE (Negative); URINE LEUKOCYTES-REFLEX TRACE (Negative); URINE NITRITE-REFLEX NEGATIVE (Negative); URINE PROTEIN NEGATIVE (Negative); URINE SPECIFIC GRAVITY 1.025 (1.005-1.030); URINE UROBILINOGEN 0.2 E.U./dl (0.2-1.0); WBC 6.6 thou/uL (4.0-11.0)
[2021-08-04 09:07] LABS: CASTS None Seen /LPF (None Seen); SQUAMOUS 4-10 Moderate /LPF (0-3); URINE RBC None Seen /HPF (0-2); URINE WBC-REFLEX 0-5 Rare /HPF (0-5)
[2021-08-04 09:08] LABS: BACTERIA-REFLEX 1-9 Few /HPF (None Seen); CRYSTALS None Seen /LPF (None Seen)
[2021-08-04 09:15] LABS: ALBUMIN 3.6 g/dL (3.4-5.0); ALKALINE PHOSPHATASE 34 U/L (46-116); ANION GAP 8 mmol/L (7-16); BUN 38 mg/dL (7-18); CALCIUM 9.8 mg/dL (8.5-10.1); CHLORIDE 100 mmol/L (98-107); CHOLESTEROL 171 mg/dL (<200); CO2 30 mmol/L (21-32); GLUCOSE 179 mg/dL (70-99); HDL CHOLESTEROL 42 mg/dL (>40); LDL CHOLESTEROL 85 mg/dL (<100); POTASSIUM 4.7 mmol/L (3.5-5.1); SGOT 21 U/L (15-37); SGPT 25 U/L (30-65); SODIUM 138 mmol/L (136-145); TC:HDL 4.1 Ratio (Not establshd); TOTAL BILIRUBIN 0.3 mg/dL (<0.1-1.0); TOTAL PROTEIN 7.4 g/dL (6.4-8.2); TRIGLYCERIDE 223 mg/dL (<150); VLDL 45 mg/dL (<40)
[2021-08-04 09:20] LABS: SERUM ASSESSMENT Clear
== END ==
LOC: M.LAB 08:12
PROVIDERS: ATTEND Family Medicine
DX: E03.9 Hypothyroidism, unspecified (principal); E11.9 Type 2 diabetes mellitus without complications; I10 Essential (primary) hypertension; N40.0 Benign prostatic hyperplasia without lower urinary tract symptoms; N13.8 Other obstructive and reflux uropathy